=== PATIENT | male | born 1950 | race Caucasian/White ===

== ENCOUNTER 2024-12-04 14:23 | Inpatient (IN) ==
[2024-12-04] MEDS: fentaNYL citrate PF 100 MCG/2 ML VIAL IV STA (15:43)
[2024-12-04 15:56] LABS: Albumin Level 4.1 gm/dl (3.4-5.0); BUN Creatinine Ratio 12.2 (10-20); Basophils # (auto) 0.02 K/uL (0.00-0.20); Basophils % (auto) 0.3 %; Bilirubin Direct 0.7 mg/dl (0-0.2); Bilirubin,Total 1.4 mg/dl (0.2-1.0); Calcium 9.1 mg/dl (8.6-10.3); Creatinine Clr Calc Pharmacy 72.5 ml/min; Eosinophils # (auto) 0.01 K/uL (0.00-0.50); Eosinophils % (auto) 0.1 %; Hematocrit (blood only) 33.5 % (42.0-52.0); Hemoglobin 11.2 g/dl (14.0-18.0); Immature Granulocytes # (auto) 0.03 K/uL (0.01-0.20); Immature Granulocytes % (auto) 0.4 %; Lymphocytes # (auto) 0.42 K/uL (1.20-3.40); Lymphocytes % (auto) 5.9 %; Mean Corpuscular Hemoglobin 30.4 pg (25.0-34.0); Mean Corpuscular Hgb Conc 33.4 g/dL (32.0-36.0); Mean Corpuscular Volume 90.8 fL (80.0-100.0); Mean Platelet Volume 9.7 fL (9.4-12.4); Monocytes # (auto) 0.26 K/uL (0.11-0.59); Monocytes % (auto) 3.7 %; Neutrophils # (auto) 6.35 K/uL (1.40-6.50); Neutrophils % (auto) 89.6 %; Platelet Count 158 K/uL (130-400); Potassium 3.4 mmol/L (3.5-5.1); RDW Coefficient of Variation 12.3 % (11.5-14.5); RDW Standard Deviation 40.7 fL (36.4-46.3); Red Blood Count 3.69 M/uL (4.70-6.10); White Blood Count 7.09 K/ul (4.8-10.8)
[2024-12-04] MEDS: ONDANSETRON INJ 2 MG/ML 2 ML VIAL IV STA (16:19)
[2024-12-04] MEDS: KETOROLAC TROMETHAMINE 15 MG/ML VIAL IV ONE (16:21)
[2024-12-04] MEDS: OPTIRAY 320 100ml IV ONE (16:33)
--- NOTE | 2024-12-04 16:59 | CT Scan Report ---
INDICATION: Abdominal pain. COMPARISON: No relevant priors available. TECHNIQUE: Axial CT images of the abdomen and pelvis were obtained following IV contrast administration. Coronal and sagittal reformations were reviewed. FINDINGS: Visualized lung bases appear unremarkable. Gallbladder distention. Gallstones in the gallbladder. The liver, spleen and adrenal glands appear unremarkable. No hydronephrosis. Left renal peripelvic and renal cortical cysts. A few subcentimeter bilateral renal calculi. Pancreatic calcifications noted. Negative for pancreatic mass or surrounding inflammation. No evidence of bowel obstruction/colitis/appendicitis. No free air. No drainable fluid collection. Small hiatal hernia. Negative for abdominal aortic aneurysm or dissection. Small fat filled umbilical hernia and bilateral inguinal hernias. The urinary bladder appears unremarkable. Phleboliths in the pelvis. No acute osseous abnormality evident. IMPRESSION: 1. Cholelithiasis. Gallbladder distention. 2. Small hiatal hernia. 3. Pancreatic calcifications suggesting degree of chronic pancreatitis. No evidence of acute pancreatitis. 4. Small fat filled umbilical hernia and bilateral inguinal hernias. 5. Bilateral renal cysts and nonobstructing renal calculi. Electronically signed by Chacorta Cast 12-04-2024 4:59 PM
--- NOTE | 2024-12-04 19:22 | Emergency Department Note ---
Impression & Plan Abdominal pain, Abnormal transaminases, Elevated bilirubin ED Provider Note NAME: TONY DEL CID AGE: 74 SEX: M : 1950 ARRIVES VIA: Walk-In INFORMANT: Patient, ED PROVIDER(S): Shea Arevalo MD CHIEF COMPLAINT: Epigastric pain HPI: This is 74-year-old male presenting for epigastric and bilateral upper quadrant pain. Patient notes that he began having pain this morning. It is severe at this time. He is having nauseous with vomiting. He reports he is never had pain like this before. He reports no chest pain or shortness of breath. He reports history of IBS. ROS: See above HPI for pertinent positives & negatives. A total of 10 systems reviewed and were otherwise negative. PAST MEDICAL HISTORY: See Below PAST SURGICAL HISTORY: See Below FAMILY HISTORY: See Below SOCIAL HISTORY: See Below HOME MEDICATIONS: See Below ALLERGIES: See Below VITALS: See Below PHYSICAL EXAMINATION: General: resting comfortably in no acute distress Head: Normocephalic and atraumatic Eyes: Normal inspection, extraocular muscles intact Ear, nose, throat: Normal external exam Neck: Normal range of motion Respiratory: lungs clear to auscultation bilaterally Cardiovascular: Regular rate/rhythm, no murmur GI: Diffusely tender in the upper quadrants and epigastrium Extremities: nontender, moves all extremities Neuro: The patient awake and alert, appropriately conversive, no focal deficits, symmetric faces Skin: Warm, dry, and intact MEDICAL DECISION MAKING: This is a 74-year-old male present for epigastric/bilateral upper quadrant pain. Patient has negative Chong's on my clinical exam currently. He is having diffuse pain in his abdomen however. Consider cholecystitis, pancreatitis, bowel perforation, diverticulitis. -Patient is currently noted to have no leukocytosis. Hemoglobin is 11.2. Does have a transaminitis, 309/161, AST/ALT with a bilirubin of 1.4, direct of 0.7. -CT imaging performed after CAT scan, patient has no current pain -CT ab/pelvis reveals cholelithiasis and gallbladder distention. Small hiatal hernia. Otherwise chronic pancreatitis is evident. -Discussed care with patient he feels completely is baseline with no current pain. -Discussed with Dr. Guillaume, general surgeon recommends ultrasound and evaluation of CBD assessing for choledocholithiasis -Ultrasound performed, pending read. Patient care signed out to oncoming physician, Dr. Hannon. Differential diagnosis: Cholecystitis, choledocholithiasis, diverticulitis, appendicitis, bowel perforation, Independent History obtained from: , daughter Diagnostics interpreted by me: ECG: ECG independently interpreted by me with sinus bradycardia rate of 55,, normal axis, normal WI, normal QRS, normal QTc, no ST segment elevations consistent with STEMI criteria Cardiac Monitoring: An order was placed for continuous cardiac monitoring. The monitor shows a rate of 64 with sinus rhythm. Past Med/Surg History Problem List (Updated 12/05/24 @ 12:01 by Shea Arevalo MD) Elevated bilirubin (Acute) Abnormal transaminases (Acute) Abdominal pain (Acute) Cholelithiasis Hypomagnesemia Hyperglycemia Chronic pancreatitis Hypokalemia Acute calculous cholecystitis Hiatal hernia Dyslipidemia Anemia Chronic diarrhea IBS (irritable bowel syndrome) Medical History (Updated 12/05/24 @ 12:01 by Shea Arevalo MD) Seasonal allergies Hyperlipidemia Hx of renal calculi >20 YRS AGO; ABLE TO PASS W/ OUT INTERVENTION Surgical History Hx of cataract extraction Hx of sigmoidoscopy Hx of colonoscopy Previous back surgery Family History Father Prostate cancer Mother Pancreatitis Hypertension Heart disease Sister Heart disease Denies family history of Ovarian cancer Myocardial infarction Breast cancer Colorectal cancer Social History (Updated 09/01/24 @ 08:17 by EUGENIE Arvizu) Smoking Status: Never smoker Second Hand Exposure: No; Do You Dip or Chew Tobacco: No; Tobacco Cessation Education Requested by Patient: No Hx Alcohol Use: No Hx Substance Use: No Preferred Language: Italian Communication Ability: Effective Visual Impairment: No Limitations Hearing Ability: Normal Machine 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 Required: No Beliefs That Will Affect Care: None marital status: Current Living Situation: Spouse current occupational status: retired Feels Safe at Home: Yes Safety Concerns: Feels Safe At This Time Safety Concerns Comment: Single-level home Childhood Exposure to Second-Hand Smoke: No Diet: regular caffeine: No (decaf tea) during the past year weight has: decreased > 10 lbs Dental Care, Regularly: Yes Physical Activity Frequency: Daily Seatbelt Use: always Sunscreen Use: No Assistive Devices: Glasses Allergies Allergies Allergy/AdvReac Type Severity Reaction Status Date / Time No Known Allergies Allergy Verified 09/01/24 08:14 Home Meds Home Medications Medication Instructions Recorded Confirmed mecobalamin (vitamin B12) 1,000 1,000 mcg PO QAM 03/11/23 12/05/24 mcg chewable tablet potassium chloride 20 mEq 20 meq PO QAM 07/28/23 12/05/24 tablet,extended release Previous Rx's Medication Instructions Recorded atorvastatin 10 mg tablet (Lipitor) 10 mg PO QPM 90 days #90 tabs 11/24/24 Results & Data (ED) Vital Signs Vital Signs - 24 hr 12/04/24 14:25 12/04/24 14:48 12/04/24 14:54 Temperature 36.6 C Temperature Source Oral Pulse Rate 57 L 59 L 62 Pulse Rate [Apical] Pulse Rate from SpO2 Sensor 58 L 60 Pulse Rhythm [Apical] Pulse Strength [Apical] Respiratory Rate 18 15 19 Respiratory Effort / Characteristics Non-Labored Spontaneous Respiratory Depth Normal Respiratory Pattern Regular Blood Pressure 187/76 H 151/81 H Blood Pressure [Left Arm] Blood Pressure Mean 113 104 Blood Pressure Mean [Left Arm] Blood Pressure Position [Left Arm] Pulse Oximetry 99 100 100 Oxygen Delivery Method Room Air Sepsis Recent Fever Within 48 Hours No Sepsis New/Unexplained Change in Mental Status N/A Sepsis Action Taken by Nursing No Action Required 12/04/24 15:01 12/04/24 15:06 12/04/24 15:36 Temperature Temperature Source Pulse Rate 61 64 65 Pulse Rate [Apical] Pulse Rate from SpO2 Sensor 63 64 Pulse Rhythm [Apical] Pulse Strength [Apical] Respiratory Rate 15 21 Respiratory Effort / Characteristics Respiratory Depth Respiratory Pattern Blood Pressure Blood Pressure [Left Arm] Blood Pressure Mean Blood Pressure Mean [Left Arm] Blood Pressure Position [Left Arm] Pulse Oximetry 100 100 Oxygen Delivery Method Sepsis Recent Fever Within 48 Hours Sepsis New/Unexplained Change in Mental Status Sepsis Action Taken by Nursing 12/04/24 15:39 12/04/24 16:00 12/04/24 16:15 Temperature Temperature Source Pulse Rate 59 L 86 Pulse Rate [Apical] 67 Pulse Rate from SpO2 Sensor 60 86 Pulse Rhythm [Apical] Pulse Strength [Apical] Respiratory Rate 20 14 23 Respiratory Effort / Characteristics Non-Labored Spontaneous Respiratory Depth Normal Respiratory Pattern Regular Blood Pressure Blood Pressure [Left Arm] 147/83 H Blood Pressure Mean Blood Pressure Mean [Left Arm] 104 Blood Pressure Position [Left Arm] Pulse Oximetry 98 99 99 Oxygen Delivery Method Room Air Sepsis Recent Fever Within 48 Hours Sepsis New/Unexplained Change in Mental Status Sepsis Action Taken by Nursing 12/04/24 16:25 12/04/24 16:25 12/04/24 16:48 Temperature Temperature Source Pulse Rate Pulse Rate [Apical] Pulse Rate from SpO2 Sensor 70 Pulse Rhythm [Apical] Pulse Strength [Apical] Respiratory Rate Respiratory Effort / Characteristics Respiratory Depth Respiratory Pattern Blood Pressure 135/75 Blood Pressure [Left Arm] 135/75 Blood Pressure Mean 85 Blood Pressure Mean [Left Arm] 95 Blood Pressure Position [Left Arm] Pulse Oximetry 97 Oxygen Delivery Method Sepsis Recent Fever Within 48 Hours Sepsis New/Unexplained Change in Mental Status Sepsis Action Taken by Nursing 12/04/24 16:51 12/04/24 16:51 12/04/24 17:00 Temperature Temperature Source Pulse Rate Pulse Rate [Apical] 69 Pulse Rate from SpO2 Sensor 70 Pulse Rhythm [Apical] Pulse Strength [Apical] Respiratory Rate 18 Respiratory Effort / Characteristics Non-Labored Spontaneous Respiratory Depth Normal Respiratory Pattern Regular Blood Pressure Blood Pressure [Left Arm] 143/70 H 142/68 H Blood Pressure Mean Blood Pressure Mean [Left Arm] 94 92 Blood Pressure Position [Left Arm] Semi-fowlers Pulse Oximetry 98 99 Oxygen Delivery Method Room Air Sepsis Recent Fever Within 48 Hours Sepsis New/Unexplained Change in Mental Status Sepsis Action Taken by Nursing 12/04/24 17:00 12/04/24 17:24 12/04/24 17:33 Temperature Temperature Source Pulse Rate Pulse Rate [Apical] Pulse Rate from SpO2 Sensor 65 66 Pulse Rhythm [Apical] Pulse Strength [Apical] Respiratory Rate Respiratory Effort / Characteristics Respiratory Depth Respiratory Pattern Blood Pressure 142/68 H Blood Pressure [Left Arm] Blood Pressure Mean 103 Blood Pressure Mean [Left Arm] Blood Pressure Position [Left Arm] Pulse Oximetry 98 98 Oxygen Delivery Method Sepsis Recent Fever Within 48 Hours Sepsis New/Unexplained Change in Mental Status Sepsis Action Taken by Nursing 12/04/24 17:51 12/04/24 18:00 12/04/24 18:00 Temperature Temperature Source Pulse Rate Pulse Rate [Apical] Pulse Rate from SpO2 Sensor 70 67 Pulse Rhythm [Apical] Pulse Strength [Apical] Respiratory Rate Respiratory Effort / Characteristics Respiratory Depth Respiratory Pattern Blood Pressure 131/64 Blood Pressure [Left Arm] Blood Pressure Mean 87 Blood Pressure Mean [Left Arm] Blood Pressure Position [Left Arm] Pulse Oximetry 100 99 Oxygen Delivery Method Sepsis Recent Fever Within 48 Hours Sepsis New/Unexplained Change in Mental Status Sepsis Action Taken by Nursing 12/04/24 18:15 12/04/24 18:21 12/04/24 18:30 Temperature Temperature Source Pulse Rate Pulse Rate [Apical] Pulse Rate from SpO2 Sensor 69 75 71 Pulse Rhythm [Apical] Pulse Strength [Apical] Respiratory Rate Respiratory Effort / Characteristics Respiratory Depth Respiratory Pattern Blood Pressure Blood Pressure [Left Arm] Blood Pressure Mean Blood Pressure Mean [Left Arm] Blood Pressure Position [Left Arm] Pulse Oximetry 98 98 98 Oxygen Delivery Method Sepsis Recent Fever Within 48 Hours Sepsis New/Unexplained Change in Mental Status Sepsis Action Taken by Nursing 12/04/24 18:36 12/04/24 19:23 12/04/24 19:23 Temperature Temperature Source Pulse Rate Pulse Rate [Apical] 74 Pulse Rate from SpO2 Sensor 70 Pulse Rhythm [Apical] Pulse Strength [Apical] Respiratory Rate 16 Respiratory Effort / Characteristics Non-Labored Respiratory Depth Normal Respiratory Pattern Regular Blood Pressure 130/70 Blood Pressure [Left Arm] 130/70 Blood Pressure Mean 96 Blood Pressure Mean [Left Arm] 90 Blood Pressure Position [Left Arm] Pulse Oximetry 98 96 Oxygen Delivery Method Room Air Sepsis Recent Fever Within 48 Hours Sepsis New/Unexplained Change in Mental Status Sepsis Action Taken by Nursing 12/04/24 19:27 12/04/24 19:33 12/04/24 19:51 Temperature Temperature Source Pulse Rate 69 74 69 Pulse Rate [Apical] Pulse Rate from SpO2 Sensor 69 73 68 Pulse Rhythm [Apical] Pulse Strength [Apical] Respiratory Rate 16 13 17 Respiratory Effort / Characteristics Respiratory Depth Respiratory Pattern Blood Pressure Blood Pressure [Left Arm] Blood Pressure Mean Blood Pressure Mean [Left Arm] Blood Pressure Position [Left Arm] Pulse Oximetry 99 99 99 Oxygen Delivery Method Sepsis Recent Fever Within 48 Hours Sepsis New/Unexplained Change in Mental Status Sepsis Action Taken by Nursing 12/04/24 19:54 12/04/24 20:00 12/04/24 20:00 Temperature Temperature Source Pulse Rate 69 Pulse Rate [Apical] Pulse Rate from SpO2 Sensor 70 Pulse Rhythm [Apical] Pulse Strength [Apical] Respiratory Rate 26 H Respiratory Effort / Characteristics Respiratory Depth Respiratory Pattern Blood Pressure 122/63 Blood Pressure [Left Arm] 122/63 Blood Pressure Mean 97 Blood Pressure Mean [Left Arm] 82 Blood Pressure Position [Left Arm] Pulse Oximetry 100 Oxygen Delivery Method Sepsis Recent Fever Within 48 Hours Sepsis New/Unexplained Change in Mental Status Sepsis Action Taken by Nursing 12/04/24 20:00 12/04/24 20:03 12/04/24 20:12 Temperature Temperature Source Pulse Rate 71 68 Pulse Rate [Apical] Pulse Rate from SpO2 Sensor 71 68 Pulse Rhythm [Apical] Pulse Strength [Apical] Respiratory Rate 24 20 Respiratory Effort / Characteristics Respiratory Depth Respiratory Pattern Blood Pressure 122/63 Blood Pressure [Left Arm] Blood Pressure Mean 97 Blood Pressure Mean [Left Arm] Blood Pressure Position [Left Arm] Pulse Oximetry 97 100 Oxygen Delivery Method Sepsis Recent Fever Within 48 Hours Sepsis New/Unexplained Change in Mental Status Sepsis Action Taken by Nursing 12/04/24 20:21 12/04/24 20:45 12/04/24 22:00 Temperature Temperature Source Pulse Rate 71 66 68 Pulse Rate [Apical] Pulse Rate from SpO2 Sensor 71 67 Pulse Rhythm [Apical] Pulse Strength [Apical] Respiratory Rate 21 18 Respiratory Effort / Characteristics Respiratory Depth Respiratory Pattern Blood Pressure Blood Pressure [Left Arm] Blood Pressure Mean Blood Pressure Mean [Left Arm] Blood Pressure Position [Left Arm] Pulse Oximetry 99 98 Oxygen Delivery Method Sepsis Recent Fever Within 48 Hours Sepsis New/Unexplained Change in Mental Status Sepsis Action Taken by Nursing 12/04/24 22:00 12/04/24 22:19 12/04/24 23:21 Temperature 37.3 C Temperature Source Oral Pulse Rate Pulse Rate [Apical] 69 66 61 Pulse Rate from SpO2 Sensor Pulse Rhythm [Apical] Regular Pulse Strength [Apical] Normal Respiratory Rate 19 20 18 Respiratory Effort / Characteristics Non-Labored Spontaneous Non-Labored Spontaneous Non-Labored Spontaneous Respiratory Depth Normal Normal Normal Respiratory Pattern Regular Regular Regular Blood Pressure Blood Pressure [Left Arm] 111/58 L 117/64 115/60 Blood Pressure Mean Blood Pressure Mean [Left Arm] 75 81 78 Blood Pressure Position [Left Arm] Semi-fowlers Sitting Pulse Oximetry 96 97 97 Oxygen Delivery Method Room Air Room Air Room Air Sepsis Recent Fever Within 48 Hours Sepsis New/Unexplained Change in Mental Status Sepsis Action Taken by Nursing 12/05/24 01:00 Temperature Temperature Source Pulse Rate Pulse Rate [Apical] 67 Pulse Rate from SpO2 Sensor Pulse Rhythm [Apical] Regular Pulse Strength [Apical] Normal Respiratory Rate 17 Respiratory Effort / Characteristics Non-Labored Spontaneous Respiratory Depth Normal Respiratory Pattern Regular Blood Pressure Blood Pressure [Left Arm] 113/61 Blood Pressure Mean Blood Pressure Mean [Left Arm] 78 Blood Pressure Position [Left Arm] Sitting Pulse Oximetry 98 Oxygen Delivery Method Room Air Sepsis Recent Fever Within 48 Hours Sepsis New/Unexplained Change in Mental Status Sepsis Action Taken by Nursing Laboratory Data 12/04/24 14:47 12/05/24 06:51 Lab Results 12/04/24 Range/Units 14:47 WBC 7.09 (4.8-10.8) K/ul RBC 3.69 L (4.70-6.10) M/uL Hgb 11.2 L (14.0-18.0) g/dl Hct 33.5 L (42.0-52.0) % MCV 90.8 (80.0-100.0) fL MCH 30.4 (25.0-34.0) pg MCHC 33.4 (32.0-36.0) g/dL RDW Std Deviation 40.7 (36.4-46.3) fL RDW Coeff of Suzan 12.3 (11.5-14.5) % Plt Count 158 (130-400) K/uL MPV 9.7 (9.4-12.4) fL Immature Gran % (Auto) 0.4 % Neut % (Auto) 89.6 % Lymph % (Auto) 5.9 % [place] % (Auto) 3.7 % Eos % (Auto) 0.1 % Baso % (Auto) 0.3 % Neut # (Auto) 6.35 (1.40-6.50) K/uL Lymph # (Auto) 0.42 L (1.20-3.40) K/uL [place] # (Auto) 0.26 (0.11-0.59) K/uL Eos # (Auto) 0.01 (0.00-0.50) K/uL Baso # (Auto) 0.02 (0.00-0.20) K/uL Immature Gran # (Auto) 0.03 (0.01-0.20) K/uL Sodium 140 (136-145) mmol/L Potassium 3.4 L (3.5-5.1) mmol/L Chloride 105 (98-107) mmol/L Carbon Dioxide 28 (21-32) mmol/L Anion Gap 7 (3-11) BUN 12 (6-23) mg/dl Creatinine 0.98 (0.6-1.4) mg/dl Est Cr Clr Drug Dosing 72.5 ml/min eGFR 79.92 BUN/Creatinine Ratio 12.2 (10-20) Glucose 203 H (70-99(Fasting)) mg/dl Calcium 9.1 (8.6-10.3) mg/dl Magnesium 1.7 (1.7-2.4) mg/dl Total Bilirubin 1.4 H (0.2-1.0) mg/dl Direct Bilirubin 0.7 H (0-0.2) mg/dl AST 309 H (13-39) U/L ALT 161 H (7-52) U/L Alkaline Phosphatase 194 H (34-104) U/L Total Protein 7.0 (6.0-8.3) gm/dl Albumin 4.1 (3.4-5.0) gm/dl Lipase 56 (11-82) U/L Administered Medications Piperacillin Sod/Tazobactam Sod (Zosyn) 4.5 gm in 100 mls @ 25 mls/hr IV Q8H [facility]; Protocol Stop: 12/15/24 06:59 Last Infusion: 12/05/24 10:08 Dose: Infused Documented By: Admin: 12/05/24 06:06 Dose: 25 mls/hr Documented By: IVÁN Potassium Chloride/Sodium Chloride (Normal Saline W/20 Meq Kcl) 20 meq in 1,000 mls @ 80 mls/hr IV .[id number] [facility] Stop: 12/06/24 02:59 Last Admin: 12/05/24 02:08 Dose: 80 mls/hr Documented By: IVÁN Discontinued Medications Etomidate (Etomidate 2 Mg/Ml 20 Ml Vial) 5 mg IV NOW ONE Stop: 12/04/24 19:31 Last Admin: 12/04/24 20:06 Dose: Not Given Documented By: ASHLEY Etomidate (Etomidate 2 Mg/Ml 20 Ml Vial) 5 mg IV NOW ONE Stop: 12/04/24 19:31 Last Admin: 12/04/24 20:06 Dose: Not Given Documented By: ASHLEY Fentanyl Citrate (Fentanyl Citrate Pf 100 Mcg/2 Ml Vial) 50 mcg IV NOW STA Stop: 12/04/24 15:40 Last Admin: 12/04/24 15:43 Dose: 50 mcg Documented By: ASHLEY Sodium Chloride (Nss) 1,000 mls @ 999 mls/hr IV .[id number] ONE Stop: 12/04/24 20:34 Last Infusion: 12/04/24 20:53 Dose: Infused Documented By: Admin: 12/04/24 19:38 Dose: 999 mls/hr Documented By: MARI Sodium Chloride (Nss) 1,000 mls @ 80 mls/hr IV .[id number] MICHAEL Stop: 12/06/24 01:59 Last Admin: 12/05/24 02:05 Dose: Not Given Documented By: IVÁN Potassium Chloride (K Sarath / Wtr) 10 meq in 100 mls @ 100 mls/hr IV Q1H MICHAEL Stop: 12/05/24 04:29 Last Infusion: 12/05/24 06:06 Dose: Infused Documented By: Admin: 12/05/24 05:03 Dose: 100 mls/hr Documented By: Infusion: 12/05/24 04:58 Dose: Infused Documented By: Jeannette Admin: 12/05/24 03:58 Dose: 100 mls/hr Documented By: Infusion: 12/05/24 03:54 Dose: Infused Documented By: Jeannette Admin: 12/05/24 02:54 Dose: 100 mls/hr Documented By: IVÁN Magnesium Sulfate/Dextrose (Magnesium Sulfate / D5w) 1 gm in 100 mls @ 50 mls/hr IV ONE ONE Stop: 12/05/24 03:24 Last Infusion: 12/05/24 05:17 Dose: Infused Documented By: [facility] Admin: 12/05/24 02:08 Dose: 50 mls/hr Documented By: IVÁN Piperacillin Sod/Tazobactam Sod (Zosyn) 4.5 gm in 100 mls @ 200 mls/hr IV NOW STA; Protocol Stop: 12/05/24 02:29 Last Infusion: 12/05/24 03:43 Dose: Infused Documented By: Jeannette Admin: 12/05/24 02:55 Dose: 200 mls/hr Documented By: IVÁN Ioversol (Optiray 320 100ml) 93 ml IV ONCE ONE Stop: 12/04/24 16:34 Last Admin: 12/04/24 16:33 Dose: 93 ml Documented By: CAT Ketorolac Tromethamine (Ketorolac Tromethamine 15 Mg/Ml Vial) 15 mg IV NOW ONE Stop: 12/04/24 16:16 Last Admin: 12/04/24 16:21 Dose: 15 mg Documented By: ASHLEY Ondansetron HCl (Ondansetron Inj 2 Mg/Ml 2 Ml Vial) 4 mg IV NOW STA Stop: 12/04/24 16:16 Last Admin: 12/04/24 16:19 Dose: 4 mg Documented By: ASHLEY Imaging Data Radiologist's Impression: Abdomen/Pelvis CT 12/04/24 15:36 INDICATION: Abdominal pain. COMPARISON: No relevant priors available. TECHNIQUE: Axial CT images of the abdomen and pelvis were obtained following IV contrast administration. Coronal and sagittal reformations were reviewed. FINDINGS: Visualized lung bases appear unremarkable. Gallbladder distention. Gallstones in the gallbladder. The liver, spleen and adrenal glands appear unremarkable. No hydronephrosis. Left renal peripelvic and renal cortical cysts. A few subcentimeter bilateral renal calculi. Pancreatic calcifications noted. Negative for pancreatic mass or surrounding inflammation. No evidence of bowel obstruction/colitis/appendicitis. No free air. No drainable fluid collection. Small hiatal hernia. Negative for abdominal aortic aneurysm or dissection. Small fat filled umbilical hernia and bilateral inguinal hernias. The urinary bladder appears unremarkable. Phleboliths in the pelvis. No acute osseous abnormality evident. IMPRESSION: 1. Cholelithiasis. Gallbladder distention. 2. Small hiatal hernia. 3. Pancreatic calcifications suggesting degree of chronic pancreatitis. No evidence of acute pancreatitis. 4. Small fat filled umbilical hernia and bilateral inguinal hernias. 5. Bilateral renal cysts and nonobstructing renal calculi. Electronically signed by Chacorta Cast 12-04-2024 4:59 PM Discharge Plan Visit Data Chief Complaint: Abdominal Pain Stated Complaint: SEVERE ABD PAIN ED Provider: Sunday Hannon Discharge Problem: Abdominal pain, Abnormal transaminases, Elevated bilirubin Patient Disposition: Admitted As Inpatient Discharge Instructions Interventions: ED Discharge Assessment Last Done: 12/05/24 01:29
[2024-12-04] MEDS: SODIUM CHLORIDE 0.9% 1,000 ML IV ONE (19:38)
[2024-12-04] MEDS: ETOMIDATE 2 MG/ML 20 ML VIAL IV ONE ×2 (20:06)
--- NOTE | 2024-12-04 20:25 | Ultrasound Report ---
Exam(s): US GALLBLADDER EXAM: US Abdomen Limited, Gallbladder CLINICAL HISTORY: Reason for exam: Transaminitis, [place] vs choledoco. TECHNIQUE: Real-time ultrasound of the right upper quadrant with image documentation. COMPARISON: No relevant prior studies available. FINDINGS: Liver: Liver mildly enlarged at 17 cm. Gallbladder: Distended gallbladder with wall thickening measuring 5 mm in stone visualized near the gallbladder neck. Imaging appearance raises the possibility of cholecystitis, but sonographic Chong sign reported as negative. Common bile duct: No biliary dilatation. Common bile duct 5 mm. Pancreas: Pancreas suboptimally characterized. Right kidney: Unremarkable. Right kidney measures 10.5 cm. No hydronephrosis. Other vasculature: Portal vein patent and normally directed. IMPRESSION: 1. Distended gallbladder with wall thickening measuring 5 mm in stone visualized near the gallbladder neck. Imaging appearance raises the possibility of cholecystitis, but sonographic Chong sign reported as negative. Correlate clinically. 2. No biliary dilatation. Common bile duct 5 mm. Electronically signed by: Dilcia Barfield M.D. 12/04/24 20:25 PM
--- NOTE | 2024-12-04 22:19 | Surgery Consultation ---
Date of Consultation December 04, 2024 Assessment & Plan (1) Acute calculous cholecystitis: Patient is a 74-year-old male who presented to the emergency department this evening for concerns of acute onset of epigastric abdominal pain, nausea and vomiting. Patient was worked up and was found to have elevated LFTs and a T bili of 1.4. Patient is afebrile and WBC wnl. Imaging was concerning for distended gallbladder with wall thickening and gallstones. He was seen and evaluated by the surgical service. The patient is nontoxic appearing, VSS, and has no abdominal pain at this time. Due to the patient having elevated LFTs an MRCP was ordered to r/o possible choledocholithiasis and is negative. Patient's case was discussed with attending surgeon, Dr. Guillaume, and the surgical team recommends the following: -Keep NPO, IV hydration, and will initial pre-op antibiotics. -Will plan to repeat LFTs in the morning to ensure they are downtrending. If LFTs are improving will plan for cholecystectomy. However if they continue to elevate GI will need to be consulted for further evaluation. -Medical management per primary team, surgery will continue to follow. Supervising Physician Co-Signing Physician Notes Patient discussed with DIANNE overnight, labs and imaging reviewed, agree with above. Presented with epigastric pain and left lower quadrant abdominal pain. This occurred after dinner on Wednesday night into Wednesday. Pain had improved after treatment in the emergency department. CT showed gallstones with distended gallbladder. Ultrasound showed cholelithiasis with suspected cholecystitis with a gallbladder wall 5 mm and gallstones. Common bile duct 5 mm, no choledocholithiasis. He was admitted to the medicine service and MRCP showed no evidence of choledocholithiasis. Overnight we recommended keeping the patient n .p.o., and repeating LFTs in the morning. For today's plan, see today's progress note. History of Present Illness Reason for Consultation: acute cholecystitis History of Present Illness Patient is a 74-year-old male who presented to the emergency department for complaints of abdominal pain with nausea and vomiting. Patient states around 2AM he started with severe abdominal pain that originally was in his epigastric region. He states the pain was 10/10 at it's worst. He has never had pain like this before and states at times it was radiating into his back. The patient tells me his pain did somewhat subside later in the morning and he attempt to eat cereal however this just made his pain worse. He did have associated nausea and vomiting and due to his symptoms ongoing he came to the ED for further evaluation. Upon workup LFTs were elevated with a Tbili of 1.4. CT imaging results for possible acute cholecystitis. Patient was seen and evaluated this evening in the ED. Patient is resting in bed, VSS, and is nontoxic appearing. The patient states his abdominal pain along with the nausea and vomiting have completely resolved at this time. Patient tells me that he has never had any previous abdominal surgeries in the past. He denies any CP, SOB, or new onset of fevers or chills with the onset of his symptoms. Allergies Allergy/AdvReac Type Severity Reaction Status Date / Time No Known Allergies Allergy Verified 09/01/24 08:14 Home Medications Medication Instructions Recorded Confirmed Type mecobalamin (vitamin B12) 1,000 1,000 mcg PO QAM 03/11/23 12/05/24 History mcg chewable tablet potassium chloride 20 mEq 20 meq PO QAM 07/28/23 12/05/24 History tablet,extended release atorvastatin 10 mg tablet (Lipitor) 10 mg PO QPM 90 days #90 tabs 11/24/24 12/05/24 Rx Patient History Medical History (Updated 12/05/24 @ 07:47 by SHARA Peng) Seasonal allergies Hyperlipidemia Hx of renal calculi >20 YRS AGO; ABLE TO PASS W/ OUT INTERVENTION Surgical History Hx of cataract extraction Hx of sigmoidoscopy Hx of colonoscopy Previous back surgery Family History Father Prostate cancer Mother Pancreatitis Hypertension Heart disease Sister Heart disease Denies family history of Ovarian cancer Myocardial infarction Breast cancer Colorectal cancer Social History (Updated 09/01/24 @ 08:17 by EUGENIE Arvizu) Smoking Status: Never smoker Second Hand Exposure: No; Do You Dip or Chew Tobacco: No; Tobacco Cessation Education Requested by Patient: No Hx Alcohol Use: No Hx Substance Use: No Preferred Language: Macedonian Communication Ability: Effective Visual Impairment: No Limitations Hearing Ability: Normal Emission Technician Required: No Beliefs That Will Affect Care: None marital status: Current Living Situation: Spouse current occupational status: retired Feels Safe at Home: Yes Safety Concerns: Feels Safe At This Time Safety Concerns Comment: Single-level home Childhood Exposure to Second-Hand Smoke: No Diet: regular caffeine: No (decaf tea) during the past year weight has: decreased > 10 lbs Dental Care, Regularly: Yes Physical Activity Frequency: Daily Seatbelt Use: always Sunscreen Use: No Assistive Devices: Glasses Review of Systems Constitutional: no fever, no chills, no sweats and no weakness Respiratory: no cough, no dyspnea and no wheezing Cardiovascular: no chest pain, no chest pain at rest, no palpitations and no syncope Gastrointestinal: as per Subjective / HPI, + abdominal pain, + nausea and + vomiting Physical Exam Constitutional: WD/WN, vitals as above Respiratory: normal respiratory effort, lungs clear to auscultation Cardiovascular: RRR, no murmur, no edema Gastrointestinal (Abdomen): Inspection/Auscultation: abdomen normal to inspection and normal bowel sounds; abdomen not distended Percussion/Palpation: abdomen soft; abdomen nontender, no guarding, abdomen not rigid and abdomen not firm Skin: no rashes, warm and dry Psychiatric: A+Ox3, euthymic affect Results & Data Vital Signs (Past 12 Hours) Vital Signs Temp Pulse Pulse Resp BP BP Pulse Ox 12/04/24 22:00 68 12/04/24 20:45 66 18 98 12/04/24 20:21 71 21 99 12/04/24 20:12 68 20 100 12/04/24 20:03 71 24 97 12/04/24 20:00 122/63 12/04/24 20:00 122/63 12/04/24 20:00 122/63 12/04/24 19:54 69 26 H 100 12/04/24 19:51 69 17 99 12/04/24 19:33 74 13 99 12/04/24 19:27 69 16 99 12/04/24 19:23 130/70 12/04/24 19:23 74 16 130/70 96 12/04/24 18:36 98 12/04/24 18:30 98 12/04/24 18:21 98 12/04/24 18:15 98 12/04/24 18:00 131/64 12/04/24 18:00 99 12/04/24 17:51 100 01/27/25 17:33 98 12/04/24 17:24 98 12/04/24 17:00 142/68 H 12/04/24 17:00 142/68 H 12/04/24 16:51 99 12/04/24 16:51 69 18 143/70 H 98 12/04/24 16:48 97 12/04/24 16:25 135/75 12/04/24 16:25 135/75 12/04/24 16:15 86 23 99 12/04/24 16:00 59 L 14 99 12/04/24 15:39 67 20 147/83 H 98 12/04/24 15:36 65 21 100 12/04/24 15:06 64 15 100 12/04/24 15:01 61 12/04/24 14:54 62 19 100 12/04/24 14:48 59 L 15 151/81 H 100 12/04/24 14:25 36.6 C 57 L 18 187/76 H 99 O2 Del Method 12/04/24 22:00 12/04/24 20:45 12/04/24 20:21 12/04/24 20:12 12/04/24 20:03 12/04/24 20:00 12/04/24 20:00 12/04/24 20:00 12/04/24 19:54 12/04/24 19:51 12/04/24 19:33 12/04/24 19:27 12/04/24 19:23 12/04/24 19:23 Room Air 12/04/24 18:36 12/04/24 18:30 12/04/24 18:21 12/04/24 18:15 12/04/24 18:00 12/04/24 18:00 12/04/24 17:51 12/04/24 17:33 12/04/24 17:24 12/04/24 17:00 12/04/24 17:00 12/04/24 16:51 12/04/24 16:51 Room Air 12/04/24 16:48 12/04/24 16:25 12/04/24 16:25 12/04/24 16:15 12/04/24 16:00 12/04/24 15:39 Room Air 12/04/24 15:36 12/04/24 15:06 12/04/24 15:01 12/04/24 14:54 12/04/24 14:48 12/04/24 14:25 Room Air Diagnostic Findings CT Abdomen/Pelvis INDICATION: Abdominal pain. COMPARISON: No relevant priors available. TECHNIQUE: Axial CT images of the abdomen and pelvis were obtained following IV contrast administration. Coronal and sagittal reformations were reviewed. FINDINGS: Visualized lung bases appear unremarkable. Gallbladder distention. Gallstones in the gallbladder. The liver, spleen and adrenal glands appear unremarkable. No hydronephrosis. Left renal peripelvic and renal cortical cysts. A few subcentimeter bilateral renal calculi. Pancreatic calcifications noted. Negative for pancreatic mass or surrounding inflammation. No evidence of bowel obstruction/colitis/appendicitis. No free air. No drainable fluid collection. Small hiatal hernia. Negative for abdominal aortic aneurysm or dissection. Small fat filled umbilical hernia and bilateral inguinal hernias. The urinary bladder appears unremarkable. Phleboliths in the pelvis. No acute osseous abnormality evident. IMPRESSION: 1. Cholelithiasis. Gallbladder distention. 2. Small hiatal hernia. 3. Pancreatic calcifications suggesting degree of chronic pancreatitis. No evidence of acute pancreatitis. 4. Small fat filled umbilical hernia and bilateral inguinal hernias. 5. Bilateral renal cysts and nonobstructing renal calculi. EXAM: US Abdomen Limited, Gallbladder CLINICAL HISTORY: Reason for exam: Transaminitis, [place] vs choledoco. TECHNIQUE: Real-time ultrasound of the right upper quadrant with image documentation. COMPARISON: No relevant prior studies available. FINDINGS: Liver: Liver mildly enlarged at 17 cm. Gallbladder: Distended gallbladder with wall thickening measuring 5 mm in stone visualized near the gallbladder neck. Imaging appearance raises the possibility of cholecystitis, but sonographic Chong sign reported as negative. Common bile duct: No biliary dilatation. Common bile duct 5 mm. Pancreas: Pancreas suboptimally characterized. Right kidney: Unremarkable. Right kidney measures 10.5 cm. No hydronephrosis. Other vasculature: Portal vein patent and normally directed. IMPRESSION: 1. Distended gallbladder with wall thickening measuring 5 mm in stone visualized near the gallbladder neck. Imaging appearance raises the possibility of cholecystitis, but sonographic Chong sign reported as negative. Correlate clinically. 2. No biliary dilatation. Common bile duct 5 mm. EXAM: MR Abdomen Without Intravenous Contrast, MRCP Protocol CLINICAL HISTORY: Reason for exam: r/o choledocholithiasis. TECHNIQUE: Multiplanar magnetic resonance images of the abdomen without intravenous contrast using MRCP protocol. COMPARISON: Same day CT, ultrasound FINDINGS: Liver appears unremarkable. Gallbladder is distended. By MRI, the wall does not appear thickened. There are small gallstones. There is no biliary dilatation. Common bile duct measures 5 mm. There is no choledocholithiasis. Pancreas appears atrophic. There are segments of pancreatic duct dilatation suggesting change related to chronic pancreatitis. No acute peripancreatic inflammatory changes are observed. Spleen and adrenal glands are unremarkable. There are simple bilateral renal cysts; no follow-up is indicated. There is no hydronephrosis bilaterally. There is no abdominal aortic aneurysm. Bowel gas pattern appears nonobstructive. A duodenal diverticulum is noted near the ampulla. IMPRESSION: 1. Small gallstones. Gallbladder distention, but no significant gallbladder inflammatory change by MRI. 2. No biliary dilatation or choledocholithiasis. 3. Chronic pancreatitis change. PG Care Time/CCT Total # of Minutes Spent Total Time Spent with Patient: Total time spent is greater than 50% in coordination of care (as documented) at patient's floor/unit and/or counseling patient: [place] [address] Office/Outpt Visit, New Patient Type New Medical Decision Making Straight Forward Diagnoses Acute calculous cholecystitis K80.00
--- NOTE | 2024-12-04 23:48 | Magnetic Resonance Report ---
Exam(s): MRI MRCP EXAM: MR Abdomen Without Intravenous Contrast, MRCP Protocol CLINICAL HISTORY: Reason for exam: r/o choledocholithiasis. TECHNIQUE: Multiplanar magnetic resonance images of the abdomen without intravenous contrast using MRCP protocol. COMPARISON: Same day CT, ultrasound FINDINGS: Liver appears unremarkable. Gallbladder is distended. By MRI, the wall does not appear thickened. There are small gallstones. There is no biliary dilatation. Common bile duct measures 5 mm. There is no choledocholithiasis. Pancreas appears atrophic. There are segments of pancreatic duct dilatation suggesting change related to chronic pancreatitis. No acute peripancreatic inflammatory changes are observed. Spleen and adrenal glands are unremarkable. There are simple bilateral renal cysts; no follow-up is indicated. There is no hydronephrosis bilaterally. There is no abdominal aortic aneurysm. Bowel gas pattern appears nonobstructive. A duodenal diverticulum is noted near the ampulla. IMPRESSION: 1. Small gallstones. Gallbladder distention, but no significant gallbladder inflammatory change by MRI. 2. No biliary dilatation or choledocholithiasis. 3. Chronic pancreatitis change. Electronically signed by: Dilcia Barfield M.D. 12/04/24 23:47 PM
--- NOTE | 2024-12-05 00:47 | History & Physical Report ---
Date of Service December 05, 2024 Assessment & Plan (1) Acute calculous cholecystitis: (2) Hypokalemia: (3) Hypomagnesemia: (4) Chronic pancreatitis: (5) Hyperglycemia: Plan Patient is a 74-year-old male with past medical history of hyperlipidemia and IBS. He presented to the ED due to diffuse abdominal pain that began at 2 AM 12/04. He is being admitted cholecystitis; if LFTs downtrend will plan for cholecystectomy 12/05. #cholecystitis 2:1 AST ALT ratio AST 309, ALT 161, alk phos 194, total bili 1.4, direct bili 0.[address] showed cholelithiasis and gallbladder distention Gallbladder ultrasound showed distended gallbladder with wall thickening measuring 5 mm and stone visualized near gallbladder neck, no biliary dilation MRCP showed small gallstones, gallbladder distention, no significant gallbladder inflammatory change, no choledocholithiasis general surgery eval in ED - LFTs downtrend, plan for cholecystectomy 12/05 - If LFTs uptrend consult GI GI consulted NPO Tylenol prn, Toradol prn, Zofran prn cover with Zosyn #Hypokalemia/hypomagnesemia K+ 3.4 -> 30 meq IV + NSS with 20 meQ gentle resuscitation overnight Mg 1.7 -> 1 G IV K+ goal 4.0/ Mg goal 2.0 resume daily potassium supplement 12/06 after no longer NPO trend BMP and Mg #chronic pancreatitis patient denies alcohol use lipase WNL [address] showed pancreatic calcifications suggesting degree of chronic pancreatitis, no evidence of acute pancreatitis GI consulted #hyperglycemia glucose 203 on admission no history of DM repeat glucose with AM labs - can consider BSG ACHS checks and SSI if remains elevated Chronic stable diagnoses: anemia - hgb 11.2, baseline IBS - no medical management, stable HLD - continue atorvastatin VTE ppx: SCDs; defer chemical ppx with potential surgical management Diet: NPO Dispo: med surg Admission and Anticipated Discharge Date Admission Date: 12/05/24 History of Present Illness Chief Complaint: abd pain Primary Care Provider: Sabina Rosenberg MD Patient is a 74-year-old male with past medical history of hyperlipidemia and IBS. He presented to the ED due to diffuse abdominal pain that began at 2 AM 12/04. He is being admitted cholecystitis; if LFTs downtrend will plan for cholecystectomy 12/05. Patient seen at bedside. He currently has 0/10 abdominal pain after receiving 50 mcg of fentanyl and 15 Mg IV Toradol in ED. He stated that he had 1 episode of vomiting after receiving pain medication but currently denies nausea. He denies recent fevers, chills, chest pain, dyspnea, diarrhea. He does not use nicotine products or drink alcohol. Denies past history of CAD, VTE, DM. He does not use oxygen at baseline. His only medications at home consists of Lipitor, potassium, and B12; however reports he was told he does not need to take lipitor, but still takes a daily. He wishes to be DNR/DNI. He last ate at 0900 12/04. He was seen by surgery team in the ED, agreeable to plan if LFTs drawn trend will have cholecystectomy 12/05. If uptrending, will consult GI; GI consulted on admission. Patient stated he does have known chronic pancreatitis. Allergies Allergy/AdvReac Type Severity Reaction Status Date / Time No Known Allergies Allergy Verified 09/01/24 08:14 Home Medications Medication Instructions Recorded Confirmed Type mecobalamin (vitamin B12) 1,000 1,000 mcg PO QAM 03/11/23 12/05/24 History mcg chewable tablet potassium chloride 20 mEq 20 meq PO QAM 07/28/23 12/05/24 History tablet,extended release atorvastatin 10 mg tablet (Lipitor) 10 mg PO QPM 90 days #90 tabs 11/24/24 12/05/24 Rx Past Med/Surg History Problem List (Updated 12/05/24 @ 01:34 by Dianna Ridley PA-C) Hypomagnesemia Hyperglycemia Chronic pancreatitis Hypokalemia Acute calculous cholecystitis Hiatal hernia Dyslipidemia Anemia Chronic diarrhea IBS (irritable bowel syndrome) Medical History (Updated 12/05/24 @ 01:34 by Dianna Ridley PA-C) Seasonal allergies Hyperlipidemia Hx of renal calculi >20 YRS AGO; ABLE TO PASS W/ OUT INTERVENTION Surgical History Hx of cataract extraction Hx of sigmoidoscopy Hx of colonoscopy Previous back surgery Family History Father Prostate cancer Mother Pancreatitis Hypertension Heart disease Sister Heart disease Denies family history of Ovarian cancer Myocardial infarction Breast cancer Colorectal cancer Social History (Updated 09/01/24 @ 08:17 by EUGENIE Arvizu) Smoking Status: Never smoker Second Hand Exposure: No; Do You Dip or Chew Tobacco: No; Tobacco Cessation Education Requested by Patient: No Hx Alcohol Use: No Hx Substance Use: No Preferred Language: Palauan Communication Ability: Effective Visual Impairment: No Limitations Hearing Ability: Normal Nuclear Weapons Custodian Required: No Beliefs That Will Affect Care: None marital status: Current Living Situation: Spouse current occupational status: retired Feels Safe at Home: Yes Safety Concerns: Feels Safe At This Time Safety Concerns Comment: Single-level home Childhood Exposure to Second-Hand Smoke: No Diet: regular caffeine: No (decaf tea) during the past year weight has: decreased > 10 lbs Dental Care, Regularly: Yes Physical Activity Frequency: Daily Seatbelt Use: always Sunscreen Use: No Assistive Devices: Glasses Review of Systems Review of Systems: see hpi Physical Exam Physical Exam: The patient is awake, alert and oriented 3, well developed and well nourished, normocephalic and atraumatic, in no acute distress. Non-toxic appearing. HEENT- EOMI, mucous membranes moist. Hearing grossly intact. Heart-normal S1 and S2. No murmurs, rubs or gallops. Lungs-clear bilaterally, no respiratory distress, no accessory muscle use. Abdomen-normal bowel sounds and soft. No ascites noted. Non-tender. Extremities- no clubbing, cyanosis, or edema. Rheumatologic-normal range of motion. Psychiatric-normal affect. Results & Data Results & Data Vital Signs (Past 12 Hours) Vital Signs Temp Pulse Pulse Resp BP BP Pulse Ox 12/04/24 23:21 61 18 115/60 97 12/04/24 22:19 37.3 C 66 20 117/64 97 12/04/24 22:00 69 19 111/58 L 96 12/04/24 22:00 68 12/04/24 20:45 66 18 98 12/04/24 20:21 71 21 99 12/04/24 20:12 68 20 100 12/04/24 20:03 71 24 97 12/04/24 20:00 122/63 12/04/24 20:00 122/63 12/04/24 20:00 122/63 12/04/24 19:54 69 26 H 100 12/04/24 19:51 69 17 99 12/04/24 19:33 74 13 99 12/04/24 19:27 69 16 99 12/04/24 19:23 130/70 12/04/24 19:23 74 16 130/70 96 12/04/24 18:36 98 12/04/24 18:30 98 12/04/24 18:21 98 12/04/24 18:15 98 12/04/24 18:00 131/64 12/04/24 18:00 99 12/04/24 17:51 100 12/04/24 17:33 98 12/04/24 17:24 98 12/04/24 17:00 142/68 H 12/04/24 17:00 142/68 H 12/04/24 16:51 99 12/04/24 16:51 69 18 143/70 H 98 12/04/24 16:48 97 12/04/24 16:25 135/75 12/04/24 16:25 135/75 12/04/24 16:15 86 23 99 12/04/24 16:00 59 L 14 99 12/04/24 15:39 67 20 147/83 H 98 12/04/24 15:36 65 21 100 12/04/24 15:06 64 15 100 12/04/24 15:01 61 12/04/24 14:54 62 19 100 12/04/24 14:48 59 L 15 151/81 H 100 12/04/24 14:25 36.6 C 57 L 18 187/76 H 99 O2 Del Method 12/04/24 23:21 Room Air 12/04/24 22:19 Room Air 12/04/24 22:00 Room Air 12/04/24 22:00 12/04/24 20:45 12/04/24 20:21 12/04/24 20:12 12/04/24 20:03 12/04/24 20:00 12/04/24 20:00 12/04/24 20:00 12/04/24 19:54 12/04/24 19:51 12/04/24 19:33 12/04/24 19:27 12/04/24 19:23 12/04/24 19:23 Room Air 12/04/24 18:36 12/04/24 18:30 12/04/24 18:21 12/04/24 18:15 12/04/24 18:00 12/04/24 18:00 12/04/24 17:51 12/04/24 17:33 12/04/24 17:24 12/04/24 17:00 12/04/24 17:00 12/04/24 16:51 12/04/24 16:51 Room Air 12/04/24 16:48 12/04/24 16:25 12/04/24 16:25 12/04/24 16:15 12/04/24 16:00 12/04/24 15:39 Room Air 12/04/24 15:36 12/04/24 15:06 12/04/24 15:01 12/04/24 14:54 12/04/24 14:48 12/04/24 14:25 Room Air Laboratory Results Reviewed CBC and CMP Diagnostic Findings reviewed MRCP, gallbladder ultrasound, AP CT Medications Administered ED: 1L NSS, zosyn, 50 mcg fentanyl, 4mg IV zofran, toradol IV 15 mg ECG Additional Comments: ordered Code Status & VTE Plan Code Status dnr/dni VTE Prophylaxis Plan VTE Prophylaxis will be ordered: Yes Supervising Physician Co-Signing Physician Notes Attending addendum: I have physically seen this patient, have supervised the DIANNE's activities, and agree with the H&P unless as otherwise noted. Assessment and Plan: The patient is a 74-year-old male with past medical history including chronic pancreatitis, hiatal hernia, dyslipidemia, IBS, hypokalemia, chronic diarrhea, and B12 deficiency. He presents to the emergency department with complaint of diffuse abdominal pain that began around 2:00 AM on 12/04. #Cholecystitis- Total bilirubin 1.4, direct bilirubin 0.7, AST 309, ALT 161, ALP 194 CT scan abdomen pelvis shows chronic pancreatitis, cholelithiasis and gallbladder wall distention and small hiatal hernia Gallbladder ultrasound shows distended gallbladder with thickening measuring 5 mm and stone visualized near the gallbladder neck, raising the possibility of cholecystitis. CBD 5 mm in diameter. MRCP small gallstones. Gallbladder distention but no significant inflammatory change by MRI. Chronic pancreatitis change Zosyn 4.5 g IV every 8 hours Status post 1 l normal saline bolus from the ED and will continue at 80 mL/h x 2 additional liters General Surgery aware and plans for surgery in a.m. as long as liver tests have not worsened Consult gastroenterology Electrolyte disturbances- Hypokalemia continue potassium IV and oral supplement as noted potassium 3.4 Magnesium sulfate 1.7, to receive IV supplement as noted Follow laboratory serially Chronic medical issues: Hyperlipidemia-atorvastatin to be resumed after surgery B12 deficiency-supplement to be resumed after surgery PG Care Time/CCT Total # of Minutes Spent Total Time Spent with Patient: Total time spent is greater than 50% in coordination of care (as documented) at patient's floor/unit and/or counseling patient: Coding Level of Care Code 07578 INT INP/OBS CARE MIN Diagnoses Acute calculous cholecystitis K80.00 Hypokalemia E87.6 Hypomagnesemia E83.42 Chronic pancreatitis K86.1 Hyperglycemia R73.9
[2024-12-05 01:08] LABS: Magnesium 1.7 mg/dl (1.7-2.4)
--- NOTE | 2024-12-05 01:52 | Emergency Department Note ---
ED Visit Note Patient's case signed out to me pending ultrasound report. Patient presented for abdominal pain right upper quadrant. Patient after medications in the ER had symptoms resolved. Patient CT scan of abdomen and pelvis showed thickening of gallbladder wall. Patient case was discussed with general surgeon Dr. Guillaume by ER physician Dr. Arevalo. They had recommended an ultrasound be performed for further evaluation. Patient had mild LFT elevation and T. bili of 1.4. On my examination patient's abdomen soft nontender nondistended. Patient's ultrasound showed gallbladder wall thickening with stone near the gallbladder neck, common bile duct normal without obvious stone present. Consultation was had again with general surgery team, Carmen SWAIN with general surgery evaluated the patient at bedside recommends MRCP and if negative okay to admit to medicine service and they will consider taking the gallbladder out tomorrow. MRCP report negative for common bile duct stone. Patient admitted to hospital service further treatment and evaluation. Diagnosis cholelithiasis, abdominal pain Disposition admission .
[2024-12-05] MEDS ORDERED: ONDANSETRON INJ 2 MG/ML 2 ML VIAL IV PRN (01:55)
[2024-12-05] MEDS: SODIUM CHLORIDE 0.9% 1,000 ML IV SCH (02:05)
[2024-12-05] MEDS: NSS + 20MEQ KCL 20 MEQ/1,000 ML BAG IV SCH (02:08)
[2024-12-05] MEDS: MAGNESIUM SULFATE / D5W 1 GM/100 ML BAG IV ONE (02:08)
[2024-12-05] MEDS: POTASSIUM CHLORIDE / WTR 10 MEQ/100 ML PLCT IV SCH (02:54)
[2024-12-05] MEDS: 4.5GM X1 IV STA (02:55)
[2024-12-05] MEDS: PIPERACILLIN/TAZOBACTAM 4.5 GM/100 ML BAG IV SCH (06:06)
--- NOTE | 2024-12-05 06:59 | Hospitalist Progress Note ---
Date of Service December 05, 2024 Assessment & Plan (1) Acute calculous cholecystitis: (2) Hypokalemia: (3) Hypomagnesemia: (4) Chronic pancreatitis: (5) Hyperglycemia: Plan Patient is a 74-year-old male with past medical history of hyperlipidemia and IBS. He presented to the ED due to diffuse abdominal pain that began at 2 AM 12/04. He is being admitted cholecystitis; if LFTs downtrend will plan for cholecystectomy 12/05. #cholecystitis 2:1 AST ALT ratio AST 309, ALT 161, alk phos 194, total bili 1.4, direct bili 0.[address] showed cholelithiasis and gallbladder distention Gallbladder ultrasound showed distended gallbladder with wall thickening measuring 5 mm and stone visualized near gallbladder neck, no biliary dilation MRCP showed small gallstones, gallbladder distention, no significant gallbladder inflammatory change, no choledocholithiasis general surgery eval in ED - LFTs downtrend, plan for cholecystectomy 12/05 - If LFTs uptrend consult GI GI consulted NPO Tylenol prn, Toradol prn, Zofran prn cover with Zosyn #Hypokalemia/hypomagnesemia K+ 3.4 -> 30 meq IV + NSS with 20 meQ gentle resuscitation overnight Mg 1.7 -> 1 G IV K+ goal 4.0/ Mg goal 2.0 resume daily potassium supplement 12/06 after no longer NPO trend BMP and Mg #chronic pancreatitis patient denies alcohol use lipase WNL [address] showed pancreatic calcifications suggesting degree of chronic pancreatitis, no evidence of acute pancreatitis GI consulted #hyperglycemia glucose 203 on admission no history of DM repeat glucose with AM labs - can consider BSG ACHS checks and SSI if remains elevated Chronic stable diagnoses: anemia - hgb 11.2, baseline IBS - no medical management, stable HLD - continue atorvastatin VTE ppx: SCDs; defer chemical ppx with potential surgical management Diet: NPO Dispo: med surg Admission and Anticipated Discharge Date Admission Date: December 05, 2024 Review of Systems 2 Review of Systems: As per HPI. Results & Data Results & Data Vital Signs (Past 12 Hours) Vital Signs Temp Pulse Pulse Resp BP BP BP 12/05/24 01:38 36.6 C 59 L 16 120/68 12/05/24 01:29 12/05/24 01:00 67 17 113/61 12/04/24 23:21 61 18 115/60 12/04/24 22:19 37.3 C 66 20 117/64 12/04/24 22:00 69 19 111/58 L 12/04/24 22:00 68 12/04/24 20:45 66 18 12/04/24 20:21 71 21 12/04/24 20:12 68 20 12/04/24 20:03 71 24 12/04/24 20:00 122/63 12/04/24 20:00 122/63 12/04/24 20:00 122/63 12/04/24 19:54 69 26 H 12/04/24 19:51 69 17 12/04/24 19:33 74 13 12/04/24 19:27 69 16 12/04/24 19:23 130/70 12/04/24 19:23 74 16 130/70 Pulse Ox O2 Del Method 12/05/24 01:38 98 Room Air 12/05/24 01:29 Room Air 12/05/24 01:00 98 Room Air 12/04/24 23:21 97 Room Air 12/04/24 22:19 97 Room Air 12/04/24 22:00 96 Room Air 12/04/24 22:00 12/04/24 20:45 98 12/04/24 20:21 99 12/04/24 20:12 100 12/04/24 20:03 97 12/04/24 20:00 12/04/24 20:00 12/04/24 20:00 12/04/24 19:54 100 12/04/24 19:51 99 12/04/24 19:33 99 12/04/24 19:27 99 12/04/24 19:23 12/04/24 19:23 96 Room Air Laboratory Results 12/04/24 14:47 12/04/24 14:47 Initial LFTs 12/04: AST 309, ALT 161, ALP 194, Tbili 1.4, direct 0.7 Repeat LFTs 12/05: AST , ALT , ALP , Tbili , direct Diagnostic Findings Abdomen/Pelvis CT 12/04/24 15:36 INDICATION: Abdominal pain. COMPARISON: No relevant priors available. TECHNIQUE: Axial CT images of the abdomen and pelvis were obtained following IV contrast administration. Coronal and sagittal reformations were reviewed. FINDINGS: Visualized lung bases appear unremarkable. Gallbladder distention. Gallstones in the gallbladder. The liver, spleen and adrenal glands appear unremarkable. No hydronephrosis. Left renal peripelvic and renal cortical cysts. A few subcentimeter bilateral renal calculi. Pancreatic calcifications noted. Negative for pancreatic mass or surrounding inflammation. No evidence of bowel obstruction/colitis/appendicitis. No free air. No drainable fluid collection. Small hiatal hernia. Negative for abdominal aortic aneurysm or dissection. Small fat filled umbilical hernia and bilateral inguinal hernias. The urinary bladder appears unremarkable. Phleboliths in the pelvis. No acute osseous abnormality evident. IMPRESSION: 1. Cholelithiasis. Gallbladder distention. 2. Small hiatal hernia. 3. Pancreatic calcifications suggesting degree of chronic pancreatitis. No evidence of acute pancreatitis. 4. Small fat filled umbilical hernia and bilateral inguinal hernias. 5. Bilateral renal cysts and nonobstructing renal calculi. Gallbladder Ultrasound 12/04/24 18:01 CLINICAL HISTORY: Reason for exam: Transaminitis, [place] vs choledoco. FINDINGS: Liver: Liver mildly enlarged at 17 cm. Gallbladder: Distended gallbladder with wall thickening measuring 5 mm in stone visualized near the gallbladder neck. Imaging appearance raises the possibility of cholecystitis, but sonographic Chong sign reported as negative. Common bile duct: No biliary dilatation. Common bile duct 5 mm. Pancreas: Pancreas suboptimally characterized. Right kidney: Unremarkable. Right kidney measures 10.5 cm. No hydronephrosis. Other vasculature: Portal vein patent and normally directed. IMPRESSION: 1. Distended gallbladder with wall thickening measuring 5 mm in stone visualized near the gallbladder neck. Imaging appearance raises the possibility of cholecystitis, but sonographic Chong sign reported as negative. Correlate clinically. 2. No biliary dilatation. Common bile duct 5 mm. Cholangiopancreatography MRI 12/04/24 21:52 CLINICAL HISTORY: Reason for exam: r/o choledocholithiasis. COMPARISON: Same day CT, ultrasound FINDINGS: Liver appears unremarkable. Gallbladder is distended. By MRI, the wall does not appear thickened. There are small gallstones. There is no biliary dilatation. Common bile duct measures 5 mm. There is no choledocholithiasis. Pancreas appears atrophic. There are segments of pancreatic duct dilatation suggesting change related to chronic pancreatitis. No acute peripancreatic inflammatory changes are observed. Spleen and adrenal glands are unremarkable. There are simple bilateral renal cysts; no follow-up is indicated. There is no hydronephrosis bilaterally. There is no abdominal aortic aneurysm. Bowel gas pattern appears nonobstructive. A duodenal diverticulum is noted near the ampulla. IMPRESSION: 1. Small gallstones. Gallbladder distention, but no significant gallbladder inflammatory change by MRI. 2. No biliary dilatation or choledocholithiasis. 3. Chronic pancreatitis change.
--- NOTE | 2024-12-05 07:48 | Surgery Progress Note ---
Date of Service December 05, 2024 Assessment & Plan (1) Cholelithiasis: Plan: pt without pain this AM abd soft non TTp LFT pending , if remain stable will add to OR schedule today for Laparoscopic Cholecystectomy with Dr Guillaume Keep NPO IV fluids addendum : LFTs rising , GI consult placed Admission and Anticipated Discharge Date Admission Date: December 05, 2024 Supervising Physician Co-Signing Physician Notes Patient seen and examined, labs and imaging reviewed, agree with above. Admitted with cholelithiasis and suspected cholecystitis with hyperbilirubinemia and transaminitis. MRCP overnight negative. Minimal pain this morning. On exam afebrile stable vitals. Abdomen soft, nontender, nondistended. WBC normal. T. bili doubled to 2.8, AST and ALT elevated. GI consult pending. Would recommend continuing n.p.o. for now, may have clear liquids until midnight after seeing GI. If LFTs continue to uptrend, may need to be transferred for ERCP. If LFTs downtrend, would plan for cholecystectomy either as an outpatient or in the next few days. Subjective pt denies abd pain this am , n/v , f/c Review of Systems Constitutional: no fever and no chills Respiratory: no dyspnea Cardiovascular: no chest pain Gastrointestinal: no abdominal pain, no nausea and no vomiting Physical Exam Constitutional: cooperative and comfortable; no acute distress Respiratory: normal respiratory effort; no respiratory distress Gastrointestinal (Abdomen): Inspection/Auscultation: abdomen not distended Percussion/Palpation: abdomen soft; abdomen nontender Results & Data Vital Signs (Past 12 Hours) Vital Signs Temp Pulse Pulse Resp BP BP BP 12/05/24 07:01 98.4 F 70 18 104/54 L 12/05/24 01:38 97.9 F 59 L 16 120/68 12/05/24 01:29 12/05/24 01:00 67 17 113/61 12/04/24 23:21 61 18 115/60 12/04/24 22:19 99.1 F 66 20 117/64 12/04/24 22:00 69 19 111/58 L 12/04/24 22:00 68 12/04/24 20:45 66 18 12/04/24 20:21 71 21 12/04/24 20:12 68 20 12/04/24 20:03 71 24 12/04/24 20:00 122/63 12/04/24 20:00 122/63 12/04/24 20:00 122/63 12/04/24 19:54 69 26 H 12/04/24 19:51 69 17 Pulse Ox O2 Del Method 12/05/24 07:01 97 Room Air 12/05/24 01:38 98 Room Air 12/05/24 01:29 Room Air 12/05/24 01:00 98 Room Air 12/04/24 23:21 97 Room Air 12/04/24 22:19 97 Room Air 12/04/24 22:00 96 Room Air 12/04/24 22:00 12/04/24 20:45 98 12/04/24 20:21 99 12/04/24 20:12 100 12/04/24 20:03 97 12/04/24 20:00 12/04/24 20:00 12/04/24 20:00 12/04/24 19:54 100 12/04/24 19:51 99 PG Care Time/CCT Total # of Minutes Spent Total Time Spent with Patient: Total time spent is greater than 50% in coordination of care (as documented) at patient's floor/unit and/or counseling patient: Coding Level of Care Code 65584 SUB INP/OBS CARE 12/02MIN Diagnoses Cholelithiasis K80.20
[2024-12-05 07:52] LABS: Alanine Aminotransferase 282 U/L (7-52); Albumin Globulin Ratio 1.3 (0.9-2); Albumin Level 3.2 gm/dl (3.4-5.0); Alkaline Phosphatase 185 U/L (34-104); Anion Gap 4 (3-11); Aspartate Aminotransferase 231 U/L (13-39); BUN Creatinine Ratio 12.5 (10-20); Bilirubin,Total 2.8 mg/dl (0.2-1.0); Blood Urea Nitrogen 15 mg/dl (6-23); Calcium 8.5 mg/dl (8.6-10.3); Carbon Dioxide 28 mmol/L (21-32); Chloride 108 mmol/L (98-107); Creatinine Clr Calc Pharmacy 59.2 ml/min; Globulin 2.4 gm/dl (2.5-4.0); Glucose 94 mg/dl (70-99(Fasting)); Sodium 140 mmol/L (136-145); Total Protein 5.6 gm/dl (6.0-8.3)
--- NOTE | 2024-12-05 11:19 | Gastrointestinal Consultation ---
Date of Consultation December 05, 2024 Assessment & Plan (1) Cholelithiasis: 74 year old male with history of dyslipidemia, IBS and others below admitted through the ED w/ abd pain, nausea/vomiting imaging concerning for chronic pancreatitis and cholecystitis planned for cholecystectomy 12/05 but post-poned due to elevated LFTs w/ Tbili 2.8 MRCP reviewed w/ small gallstones gallbladder distention but no biliary dilatation or choledocholithiasis. As his pain resolved, perhaps he passed a stone. Given normal CBD on ABD US, CT, MR would recommend repeating a set of LFTs tomorrow. If improving, defer timing of CCY to general surgery. If LFTs continue to rise, recommend transfer for ERCP at that time. - Chronic pancreatitis on imaging - Check fecal elastase - Elevated LFTs, gallstones, cholecystitis - No GI contraindication to clear liquids today - Repeat LFTs Wednesday - If improving, CCY per general surgery recommendations - If persistent elevation, transfer for ERCP evaluation I spent a total of 60 minutes on the date of service in review of patient's record, and previously obtained information in person and appropriate medical visit, discussion and education of plan, with patient and/or caregiver, placing orders for tests/referral/procedures as medically necessary and documentation of pertinent clinical information in patient's medical records for their visit today.Thank you for allowing us to participate in the care of this patient. Please call with any acute changes, questions or concerns. Please see addendum below with additional recommendation from my supervising physician. Supervising Physician Co-Signing Physician Notes I personally saw and examined the patient. I have reviewed the chart and agree with the documentation provided by the GLASS CURV[employer] GAUGER including discussion about the assessment, treatment and plan. Briefly, 74 year old male with history of dyslipidemia, IBS and others below admitted through the ED w/ abd pain, nausea/vomiting imaging concerning for chronic pancreatitis and cholecystitis planned for cholecystectomy 12/05 but post-poned due to elevated LFTs w/ Tbili 2.8 MRCP reviewed w/ small gallstones gallbladder distention but no biliary dilatation or choledocholithiasis. The CBD is 5 mm. as his pain resolved, perhaps he passed a stone. Given normal CBD on ABD US, CT, MR would recommend repeating a set of LFTs tomorrow. If improving, defer timing of CCY to general surgery. If LFTs continue to rise, recommend transfer for ERCP at that time. - Chronic pancreatitis on imaging, we will check a pancreatic fecal elastase given the patient's IBS-D diagnosis and chronic diarrhea. In the setting of normal MRCP, CBD 5 mm and no pain (risk of 7% with ERCP associated pancreatitis), would watch to see if this is duct edema from a passed stone. If LFTs do rise we will consider an ERCP. Clear liquid diet for now and supportive care with LFTs in a.m. History of Present Illness Reason for Consultation: Cholecystitis, chronic pancreatitis, history IBS Requesting Physician: Pio Medina MD Attending Physician: Pio Medina MD History of Present Illness 74 year old male with history of dyslipidemia, IBS and others below admitted through the ED w/ abd pain - cholecystitis planned for cholecystectomy 12/05. GI was asked to evaluate for "Cholecystitis, chronic pancreatitis, history IBS." Pt was seen and evaluated, chart reviewed. at bedside. Suggests after eating mac and cheese developed upper abd pain. Never had similar pain. Pain persistent, developed nausea/vomiting and sought ED care. Suggests overnight pain resolved. Pain free this AM. No fever, chills, CP, SOB. Tbili 1.4 --> 2.8 AST 309 --> 231 ALT 161 --> 282 ALKP 194 --> 185 Lipase 56 MRCP 2024: Small gallstones. Gallbladder distention, but no significant gallbladder inflammatory change by MRI.No biliary dilatation or choledocholithiasis. Chronic pancreatitis change. ABD US 2024: Distended gallbladder with wall thickening measuring 5 mm in stone visualized near the gallbladder neck. Imaging appearance raises the possibility of cholecystitis, but sonographic Chong sign reported as negative. Correlate clinically. No biliary dilatation. Common bile duct 5 mm. CTAP 2024: Cholelithiasis. Gallbladder distention. Small hiatal hernia. Pancreatic calcifications suggesting degree of chronic pancreatitis. No evidence of acute pancreatitis. Small fat filled umbilical hernia and bilateral inguinal hernias. Bilateral renal cysts and nonobstructing renal calculi. EGD 03/19/23 medium hiatal hernia, gastritis. Colonoscopy 03/19/23 diverticulosis and nonbleeding internal hemorrhoids. Allergies Allergy/AdvReac Type Severity Reaction Status Date / Time No Known Allergies Allergy Verified 09/01/24 08:14 Home Medications Medication Instructions Recorded Confirmed Type mecobalamin (vitamin B12) 1,000 1,000 mcg PO QAM 03/11/23 12/05/24 History mcg chewable tablet potassium chloride 20 mEq 20 meq PO QAM 07/28/23 12/05/24 History tablet,extended release atorvastatin 10 mg tablet (Lipitor) 10 mg PO QPM 90 days #90 tabs 11/24/24 12/05/24 Rx Patient History Medical History (Updated 12/05/24 @ 07:47 by SHARA Peng) Seasonal allergies Hyperlipidemia Hx of renal calculi >20 YRS AGO; ABLE TO PASS W/ OUT INTERVENTION Surgical History Hx of cataract extraction Hx of sigmoidoscopy Hx of colonoscopy Previous back surgery Family History Father Prostate cancer Mother Pancreatitis Hypertension Heart disease Sister Heart disease Denies family history of Ovarian cancer Myocardial infarction Breast cancer Colorectal cancer Social History (Updated 09/01/24 @ 08:17 by EUGENIE Arvizu) Smoking Status: Never smoker Second Hand Exposure: No; Do You Dip or Chew Tobacco: No; Tobacco Cessation Education Requested by Patient: No Hx Alcohol Use: No Hx Substance Use: No Preferred Language: Yoruba Communication Ability: Effective Visual Impairment: No Limitations Hearing Ability: Normal Payroll Benefits Clerk Required: No Beliefs That Will Affect Care: None marital status: Current Living Situation: Spouse current occupational status: retired Feels Safe at Home: Yes Safety Concerns: Feels Safe At This Time Safety Concerns Comment: Single-level home Childhood Exposure to Second-Hand Smoke: No Diet: regular caffeine: No (decaf tea) during the past year weight has: decreased > 10 lbs Dental Care, Regularly: Yes Physical Activity Frequency: Daily Seatbelt Use: always Sunscreen Use: No Assistive Devices: Glasses Review of Systems Review of Systems: All other findings negative except as noted in HPI. Physical Exam Constitutional: WD/WN, vitals as above Respiratory: normal respiratory effort, lungs clear to auscultation Cardiovascular: Rate/Rhythm: regular rate and regular rhythm Gastrointestinal (Abdomen): normal bowel sounds, soft, nontender, no hepatosplenomegaly Skin: no rashes, warm and dry Results & Data Vital Signs (Past 12 Hours) Vital Signs Temp Pulse Pulse Resp BP BP Pulse Ox 12/05/24 11:06 97.5 F L 64 18 112/65 97 12/05/24 07:01 98.4 F 70 18 104/54 L 97 12/05/24 01:38 97.9 F 59 L 16 120/68 98 12/05/24 01:29 12/05/24 01:00 67 17 113/61 98 12/04/24 23:21 61 18 115/60 97 O2 Del Method 12/05/24 11:06 Room Air 12/05/24 07:01 Room Air 12/05/24 01:38 Room Air 12/05/24 01:29 Room Air 12/05/24 01:00 Room Air 12/04/24 23:21 Room Air Laboratory Results 12/05/24 12/04/24 Range/Units 06:51 14:47 WBC 7.09 (4.8-10.8) K/ul RBC 3.69 L (4.70-6.10) M/uL Hgb 11.2 L (14.0-18.0) g/dl Hct 33.5 L (42.0-52.0) % MCV 90.8 (80.0-100.0) fL MCH 30.4 (25.0-34.0) pg MCHC 33.4 (32.0-36.0) g/dL RDW Std Deviation 40.7 (36.4-46.3) fL RDW Coeff of Suzan 12.3 (11.5-14.5) % Plt Count 158 (130-400) K/uL MPV 9.7 (9.4-12.4) fL Immature Gran % (Auto) 0.4 % Neut % (Auto) 89.6 % Lymph % (Auto) 5.9 % [place] % (Auto) 3.7 % Eos % (Auto) 0.1 % Baso % (Auto) 0.3 % Neut # (Auto) 6.35 (1.40-6.50) K/uL Lymph # (Auto) 0.42 L (1.20-3.40) K/uL [place] # (Auto) 0.26 (0.11-0.59) K/uL Eos # (Auto) 0.01 (0.00-0.50) K/uL Baso # (Auto) 0.02 (0.00-0.20) K/uL Immature Gran # (Auto) 0.03 (0.01-0.20) K/uL Sodium 140 140 (136-145) mmol/L Potassium 4.0 3.4 L (3.5-5.1) mmol/L Chloride 108 H 105 (98-107) mmol/L Carbon Dioxide 28 28 (21-32) mmol/L Anion Gap 4 7 (3-11) BUN 15 12 (6-23) mg/dl Creatinine 1.20 0.98 (0.6-1.4) mg/dl Est Cr Clr Drug Dosing 59.2 72.5 ml/min eGFR 62.67 79.92 BUN/Creatinine Ratio 12.5 12.2 (10-20) Glucose 94 203 H (70-99(Fasting)) mg/dl Calcium 8.5 L 9.1 (8.6-10.3) mg/dl Magnesium 1.7 (1.7-2.4) mg/dl Total Bilirubin 2.8 H D 1.4 H (0.2-1.0) mg/dl Direct Bilirubin TNP 0.7 H (0-0.2) mg/dl AST 231 H 309 H (13-39) U/L ALT 282 H 161 H (7-52) U/L Alkaline Phosphatase 185 H 194 H (34-104) U/L Total Protein 5.6 L 7.0 (6.0-8.3) gm/dl Albumin 3.2 L 4.1 (3.4-5.0) gm/dl Globulin 2.4 L (2.5-4.0) gm/dl Albumin/Globulin Ratio 1.3 (0.9-2) Lipase 56 (11-82) U/L PG Care Time/CCT Total # of Minutes Spent Total Time Spent with Patient: Total time spent is greater than 50% in coordination of care (as documented) at patient's floor/unit and/or counseling patient: Coding Level of Care Code 78265 INT INP/OBS CARE Diagnoses Cholelithiasis K80.20
--- NOTE | 2024-12-05 12:26 | Electrocardiogram Report ---
Test Reason : Blood Pressure : */* mmHG Vent. Rate : 57 BPM Atrial Rate : * BPM P-R Int : * ms QRS Dur : 102 ms QT Int : 444 ms P-R-T Axes : * -31 8 degrees QTcB Int : 432 ms Sinus bradycardia Left axis deviation Abnormal ECG No previous ECGs available Confirmed by Alonso Willson ([id number]) on 12/05/2024 12:26:07 PM Referred By: REFERRED SELF Confirmed By: Alonso Willson
--- NOTE | 2024-12-05 12:48 | Electrocardiogram Report ---
Test Reason : Blood Pressure : */* mmHG Vent. Rate : 55 BPM Atrial Rate : 55 BPM P-R Int : 188 ms QRS Dur : 120 ms QT Int : 440 ms P-R-T Axes : 48 -15 12 degrees QTcB Int : 420 ms Sinus bradycardia with marked sinus arrhythmia Borderline ECG When compared with ECG of 04-Dec-2024 14:38, (unconfirmed) Questionable change in QRS duration Confirmed by Alonso Willson ([id number]) on 12/05/2024 12:47:58 PM Referred By: REFERRED SELF Confirmed By: Alonso Willson
--- NOTE | 2024-12-05 15:29 | Hospitalist Progress Note ---
Date of Service December 05, 2024 Assessment & Plan (1) Acute calculous cholecystitis: Plan: imaging, abnormal LFTs, presenting symptoms all c/w acute cholecystitis MRCP negative for choledocholithiasis however, today his total bilirubin doubled from 1.4 to 2.8 this may or may not suggest a small gallstone has slid into the CBD (despite the recent negative MRCP) due to the rise in his bili gen surg did not take him to the OR today for lap cecilia plan - repeat LFTs in am if total bili continues to rise would need transfer to tertiary care center for consideration of ERCP cont IV zosyn clear liquids today NPO after MN tonight in case he would need ERCP tomorrow cont IV fluids (2) Hypokalemia: Plan: replaced resolved (3) Hypomagnesemia: Plan: mag level wnl (4) Chronic pancreatitis: Plan: findings on imaging concerning for such GI sent stool pancreatic elastase to r/o chronic PI patient does report "IBS" with chronic loose stools (5) Hyperglycemia: Plan: presenting glucose of 203 check a1c in am Admission and Anticipated Discharge Date Admission Date: December 05, 2024 Subjective patient reports no recurrent abd pain or N/V no fevers or chills had loose stool earlier in the day denies any dyspnea Review of Systems Review of Systems: CV - no chest pain pulm - no cough or dyspnea Physical Exam Physical Exam: gen - NAD, looks good eyes - no scleral icterus neck - no JVD mouth - MMM skin - no jaundice heart - RRR, s1 s2, no murmur lungs - CTA b/l abd - soft NT ND BS+ ext - no edema, pulses 2+ b/l Results & Data Results & Data Vital Signs (Past 12 Hours) Vital Signs Temp Pulse Pulse Resp BP Pulse Ox O2 Del Method 12/05/24 14:32 36.5 C 67 17 105/67 100 Room Air 12/05/24 11:06 36.4 C L 64 18 112/65 97 Room Air 12/05/24 07:01 36.9 C 70 18 104/54 L 97 Room Air Laboratory Results Laboratory Results - last 24 hr 12/05/24 12/05/24 06:51 Unknown Sodium 140 Potassium 4.0 Chloride 108 H Carbon Dioxide 28 Anion Gap 4 BUN 15 Creatinine 1.20 Est Cr Clr Drug Dosing 59.2 eGFR 62.67 BUN/Creatinine Ratio 12.5 Glucose 94 Calcium 8.5 L Total Bilirubin 2.8 H D Direct Bilirubin TNP AST 231 H ALT 282 H Alkaline Phosphatase 185 H Total Protein 5.6 L Albumin 3.2 L Globulin 2.4 L Albumin/Globulin Ratio 1.3 Stl Pancreat Elastase 1 Pending Diagnostic Findings Abdomen/Pelvis CT 12/04/24 15:36 INDICATION: Abdominal pain. COMPARISON: No relevant priors available. TECHNIQUE: Axial CT images of the abdomen and pelvis were obtained following IV contrast administration. Coronal and sagittal reformations were reviewed. FINDINGS: Visualized lung bases appear unremarkable. Gallbladder distention. Gallstones in the gallbladder. The liver, spleen and adrenal glands appear unremarkable. No hydronephrosis. Left renal peripelvic and renal cortical cysts. A few subcentimeter bilateral renal calculi. Pancreatic calcifications noted. Negative for pancreatic mass or surrounding inflammation. No evidence of bowel obstruction/colitis/appendicitis. No free air. No drainable fluid collection. Small hiatal hernia. Negative for abdominal aortic aneurysm or dissection. Small fat filled umbilical hernia and bilateral inguinal hernias. The urinary bladder appears unremarkable. Phleboliths in the pelvis. No acute osseous abnormality evident. IMPRESSION: 1. Cholelithiasis. Gallbladder distention. 2. Small hiatal hernia. 3. Pancreatic calcifications suggesting degree of chronic pancreatitis. No evidence of acute pancreatitis. 4. Small fat filled umbilical hernia and bilateral inguinal hernias. 5. Bilateral renal cysts and nonobstructing renal calculi. Electronically signed by Chacorta Cast 12-04-2024 4:59 PM Gallbladder Ultrasound 12/04/24 18:01 Exam(s): US GALLBLADDER EXAM: US Abdomen Limited, Gallbladder CLINICAL HISTORY: Reason for exam: Transaminitis, Cecilia vs choledoco. TECHNIQUE: Real-time ultrasound of the right upper quadrant with image documentation. COMPARISON: No relevant prior studies available. FINDINGS: Liver: Liver mildly enlarged at 17 cm. Gallbladder: Distended gallbladder with wall thickening measuring 5 mm in stone visualized near the gallbladder neck. Imaging appearance raises the possibility of cholecystitis, but sonographic Chong sign reported as negative. Common bile duct: No biliary dilatation. Common bile duct 5 mm. Pancreas: Pancreas suboptimally characterized. Right kidney: Unremarkable. Right kidney measures 10.5 cm. No hydronephrosis. Other vasculature: Portal vein patent and normally directed. IMPRESSION: 1. Distended gallbladder with wall thickening measuring 5 mm in stone visualized near the gallbladder neck. Imaging appearance raises the possibility of cholecystitis, but sonographic Chong sign reported as negative. Correlate clinically. 2. No biliary dilatation. Common bile duct 5 mm. Electronically signed by: Dilcia Barfield M.D. 12/04/24 20:25 PM Cholangiopancreatography MRI 12/04/24 21:52 Exam(s): MRI MRCP EXAM: MR Abdomen Without Intravenous Contrast, MRCP Protocol CLINICAL HISTORY: Reason for exam: r/o choledocholithiasis. TECHNIQUE: Multiplanar magnetic resonance images of the abdomen without intravenous contrast using MRCP protocol. COMPARISON: Same day CT, ultrasound FINDINGS: Liver appears unremarkable. Gallbladder is distended. By MRI, the wall does not appear thickened. There are small gallstones. There is no biliary dilatation. Common bile duct measures 5 mm. There is no choledocholithiasis. Pancreas appears atrophic. There are segments of pancreatic duct dilatation suggesting change related to chronic pancreatitis. No acute peripancreatic inflammatory changes are observed. Spleen and adrenal glands are unremarkable. There are simple bilateral renal cysts; no follow-up is indicated. There is no hydronephrosis bilaterally. There is no abdominal aortic aneurysm. Bowel gas pattern appears nonobstructive. A duodenal diverticulum is noted near the ampulla. IMPRESSION: 1. Small gallstones. Gallbladder distention, but no significant gallbladder inflammatory change by MRI. 2. No biliary dilatation or choledocholithiasis. 3. Chronic pancreatitis change. Electronically signed by: Dilcia Barfield M.D. 12/04/24 23:47 PM PG Care Time/CCT Total # of Minutes Spent Total Time Spent with Patient: Total time spent is greater than 50% in coordination of care (as documented) at patient's floor/unit and/or counseling patient: Coding Level of Care Code 81020 SUB INP/OBS CARE 2/35MIN Diagnoses Acute calculous cholecystitis K80.00 Hypokalemia E87.6 Hypomagnesemia E83.42 Chronic pancreatitis K86.1 Hyperglycemia R73.9
[2024-12-05] MEDS: ATORVASTATIN 10 MG TAB PO SCH (20:46)
[2024-12-06 07:11] LABS: Basophils # (auto) 0.03 K/uL (0.00-0.20); Basophils % (auto) 0.5 %; Eosinophils # (auto) 0.06 K/uL (0.00-0.50); Eosinophils % (auto) 0.9 %; Hematocrit (blood only) 28.3 % (42.0-52.0); Hemoglobin 9.4 g/dl (14.0-18.0); Immature Granulocytes # (auto) 0.02 K/uL (0.01-0.20); Immature Granulocytes % (auto) 0.3 %; Lymphocytes # (auto) 0.67 K/uL (1.20-3.40); Lymphocytes % (auto) 10.5 %; Mean Corpuscular Hemoglobin 30.3 pg (25.0-34.0); Mean Corpuscular Hgb Conc 33.2 g/dL (32.0-36.0); Mean Corpuscular Volume 91.3 fL (80.0-100.0); Mean Platelet Volume 9.8 fL (9.4-12.4); Monocytes # (auto) 0.51 K/uL (0.11-0.59); Neutrophils # (auto) 5.11 K/uL (1.40-6.50); Neutrophils % (auto) 79.8 %; Platelet Count 111 K/uL (130-400); RDW Coefficient of Variation 12.7 % (11.5-14.5); RDW Standard Deviation 42.1 fL (36.4-46.3)
[2024-12-06 07:18] LABS: Estimated Average Glucose 111 mg/dl; Hemoglobin A1C 5.5 % (4.5-5.6)
[2024-12-06 07:33] LABS: Albumin Globulin Ratio 1.1 (0.9-2); Albumin Level 2.9 gm/dl (3.4-5.0); BUN Creatinine Ratio 13.4 (10-20); Bilirubin,Total 1.4 mg/dl (0.2-1.0); Calcium 8.1 mg/dl (8.6-10.3); Creatinine Clr Calc Pharmacy 59.7 ml/min; Globulin 2.6 gm/dl (2.5-4.0); Potassium 3.4 mmol/L (3.5-5.1); Total Protein 5.5 gm/dl (6.0-8.3)
--- NOTE | 2024-12-06 07:58 | Surgery Progress Note ---
Date of Service December 06, 2024 Assessment & Plan (1) Cholelithiasis: Plan: pt denies abd pain , abd soft Non TTP LFTs downtrending T bili 1.4 (2.8) , VSS Will add to OR for a robotic lap cecilia today Keep NPO IV fluids for hydration Admission and Anticipated Discharge Date Admission Date: December 05, 2024 Supervising Physician Co-Signing Physician Notes Patient seen and examined, labs reviewed, agree with above. Admitted with cholelithiasis with transaminitis, MRCP negative for choledocholithiasis. Yesterday his LFTs increased and we continue to watch him in the hospital. Today he denies any pain. He is anxious to have surgery. On exam he is afebrile stable vitals, abdomen soft, nontender. WBC normal, LFTs downtrending. Likely passed a small stone, we will proceed with cholecystectomy today or tomorrow. plan for robotic assisted laparoscopic cholecystectomy with possible cholangiogram risks discussed to include but not limited to bleeding, infection, retained stone, bile leak, open surgery, damage to surrounding structures including bile duct, need for future or more extensive surgery, failure to treat symptoms, and risks of anesthesia. Subjective Denies abd pain, n/v , passing flatus Review of Systems Constitutional: no fever and no chills Respiratory: no dyspnea Cardiovascular: no chest pain Gastrointestinal: no abdominal pain, no nausea and no vomiting Musculoskeletal: no muscle weakness Physical Exam Constitutional: cooperative and comfortable; no acute distress Respiratory: normal respiratory effort and able to speak in complete sentences; no respiratory distress Cardiovascular: Rate/Rhythm: regular rate Gastrointestinal (Abdomen): Inspection/Auscultation: abdomen not distended Percussion/Palpation: abdomen soft; abdomen nontender Results & Data Vital Signs (Past 12 Hours) Vital Signs Temp Pulse Resp BP Pulse Ox O2 Del Method 12/06/24 07:12 98.4 F 64 16 131/72 96 Room Air 12/05/24 20:38 99.0 F 58 L 16 115/61 99 Room Air Results CBC w Diff Results: RBC 3.10 M/uL (4.70-6.10) L 12/06/24 WBC 6.40 K/ul (4.8-10.8) 12/06/24 Hgb 9.4 g/dl (14.0-18.0) L 12/06/24 Hct 28.3 % (42.0-52.0) L 12/06/24 MCV 91.3 fL (80.0-100.0) 12/06/24 MCH 30.3 pg (25.0-34.0) 12/06/24 MCHC 33.2 g/dL (32.0-36.0) 12/06/24 RDW Standard Deviation 42.1 fL (36.4-46.3) 12/06/24 RDW Coefficient of Variation 12.7 % (11.5-14.5) 12/06/24 Plt Count 111 K/uL (130-400) L 12/06/24 MPV 9.8 fL (9.4-12.4) 12/06/24 Neutrophils (%) (Auto) 79.8 % 12/06/24 Lymphocytes (%) (Auto) 10.5 % 12/06/24 Monocytes # (Auto) 0.51 K/uL (0.11-0.59) 12/06/24 Eosinophils # (Auto) 0.06 K/uL (0.00-0.50) 12/06/24 Immature Granulocyte % (Auto) 0.3 % 12/06/24 Neutrophils # (Auto) 5.11 K/uL (1.40-6.50) 12/06/24 Lymphocytes # (Auto) 0.67 K/uL (1.20-3.40) L 12/06/24 Monocytes # (Auto) 0.51 K/uL (0.11-0.59) 12/06/24 Eosinophils # (Auto) 0.06 K/uL (0.00-0.50) 12/06/24 Basophils # (Auto) 0.03 K/uL (0.00-0.20) 12/06/24 Immature Granulocyte # (Auto) 0.02 K/uL (0.01-0.20) 5 Results CMP Results: Sodium 138 mmol/L (136-145) 12/06/24 Potassium 3.4 mmol/L (3.5-5.1) L 12/06/24 Chloride 109 mmol/L (98-107) H 12/06/24 Carbon Dioxide 24 mmol/L (21-32) 12/06/24 Anion Gap 5 (3-11) 12/06/24 BUN 16 mg/dl (6-23) 12/06/24 Creatinine 1.19 mg/dl (0.6-1.4) 12/06/24 eGFR 63.31 12/06/24 Est GFR ( Amer) 97.8 ml/min 02/29/24 Est GFR (Non-Af Amer) 84.4 ml/min 02/29/24 BUN/Creatinine Ratio 13.4 (10-20) 12/06/24 Glucose 88 mg/dl (70-99(Fasting)) 12/06/24 Calcium 8.1 mg/dl (8.6-10.3) L 12/06/24 Total Bilirubin 1.4 mg/dl (0.2-1.0) H 12/06/24 Direct Bilirubin TNP 12/05/24 AST 72 U/L (13-39) H 12/06/24 ALT 164 U/L (7-52) H 12/06/24 Alkaline Phosphatase 175 U/L (34-104) H 12/06/24 Total Protein 5.5 gm/dl (6.0-8.3) L 12/06/24 Albumin 2.9 gm/dl (3.4-5.0) L 12/06/24 Globulin 2.6 gm/dl (2.5-4.0) 12/06/24 Albumin/Globulin Ratio 1.1 (0.9-2) 12/06/24 PG Care Time/CCT Total # of Minutes Spent Total Time Spent with Patient: Total time spent is greater than 50% in coordination of care (as documented) at patient's floor/unit and/or counseling patient: Coding Level of Care Code 89195 SUB INP/OBS CARE 12/02MIN Diagnoses Cholelithiasis K80.20
[2024-12-06] MEDS: POTASSIUM CHLORIDE CRTAB 20 MEQ TABCR PO SCH (08:06)
[2024-12-06] MEDS: POTASSIUM CHLORIDE CRTAB 20 MEQ TABCR PO STA (08:54)
--- NOTE | 2024-12-06 09:17 | Gastroenterology Progress Note ---
Date of Service December 06, 2024 Assessment & Plan (1) Cholelithiasis: Plan: 74 year old male with history of dyslipidemia, IBS and others below admitted through the ED w/ abd pain, nausea/vomiting imaging concerning for chronic pancreatitis and cholecystitis planned for cholecystectomy 12/05 but post-poned due to elevated LFTs w/ Tbili 2.8 MRCP reviewed w/ small gallstones gallbladder distention but no biliary dilatation or choledocholithiasis. As his pain resolved, perhaps he passed a stone. Given normal CBD on ABD US, CT, MR would recommend repeating a set of LFTs tomorrow. His LFTs have improved overnight. He remains pain free and is NPO in anticip ation of surgical decision regarding timing of CCY - Chronic pancreatitis on imaging - Check fecal elastase - Elevated LFTs, gallstones, cholecystitis - Downtrending - Suspected he passed a stone - Appreciate general surgery recommendation regarding timing of CCY Recall GI as needed. Thank you for allowing us to participate in the care of this patient. Please call with any acute changes, questions or concerns. Please see addendum below with additional recommendation from my supervising physician. I spent a total of 30 minutes on the date of service in review of patient's record, and previously obtained information in person and appropriate medical visit, discussion and education of plan, with patient and/or caregiver, placing orders for tests/referral/procedures as medically necessary and documentation of pertinent clinical information in patient's medical records for their visit today. Admission and Anticipated Discharge Date Admission Date: December 05, 2024 Supervising Physician Co-Signing Physician Notes I personally saw and examined the patient. I have reviewed the chart and agree with the documentation provided by the RN [employer] including discussion about the assessment, treatment and plan. LFTs are coming down and he is going for surgery today. Bilirubin has come down to 1.4 and he has no pain. Suspect duct edema from recently passed stone. Will await the fecal elastase and follow that up outpatient given his chronic diarrhea and now chronic pancreatitis on CT. GI will sign off. Please have patient follow-up with [facility] Jr in 2 to 3 months Subjective Pt was seen and evaluated, chart reviewed. Feeling well. No abd pain. No nausea/vomiting. Is NPO for anticipation of a surgical plan today. Tbili 1.4 --> 2.8 --> 1.4 AST 309 --> 231 --> 72 ALT 161 --> 282 --> 164 ALKP 194 --> 185 --> 176 Lipase 56 Review of Systems Review of Systems: All other findings negative except as noted in HPI. Physical Exam Constitutional: WD/WN, vitals as above Respiratory: normal respiratory effort, lungs clear to auscultation Cardiovascular: RRR, no murmur, no edema Gastrointestinal (Abdomen): normal bowel sounds, soft, nontender, no hepatosplenomegaly Skin: no rashes, warm and dry Results & Data Results & Data Vital Signs (Past 12 Hours) Vital Signs Temp Pulse Resp BP Pulse Ox O2 Del Method 12/06/24 07:12 98.4 F 64 16 131/72 96 Room Air Laboratory Results 12/06/24 12/05/24 Range/Units 06:42 Unknown WBC 6.40 (4.8-10.8) K/ul RBC 3.10 L (4.70-6.10) M/uL Hgb 9.4 L (14.0-18.0) g/dl Hct 28.3 L (42.0-52.0) % MCV 91.3 (80.0-100.0) fL MCH 30.3 (25.0-34.0) pg MCHC 33.2 (32.0-36.0) g/dL RDW Std Deviation 42.1 (36.4-46.3) fL RDW Coeff of Suzan 12.7 (11.5-14.5) % Plt Count 111 L (130-400) K/uL MPV 9.8 (9.4-12.4) fL Immature Gran % (Auto) 0.3 % Neut % (Auto) 79.8 % Lymph % (Auto) 10.5 % Monroe % (Auto) 8.0 % Eos % (Auto) 0.9 % Baso % (Auto) 0.5 % Neut # (Auto) 5.11 (1.40-6.50) K/uL Lymph # (Auto) 0.67 L (1.20-3.40) K/uL Monroe # (Auto) 0.51 (0.11-0.59) K/uL Eos # (Auto) 0.06 (0.00-0.50) K/uL Baso # (Auto) 0.03 (0.00-0.20) K/uL Immature Gran # (Auto) 0.02 (0.01-0.20) K/uL Sodium 138 (136-145) mmol/L Potassium 3.4 L (3.5-5.1) mmol/L Chloride 109 H (98-107) mmol/L Carbon Dioxide 24 (21-32) mmol/L Anion Gap 5 (3-11) BUN 16 (6-23) mg/dl Creatinine 1.19 (0.6-1.4) mg/dl Est Cr Clr Drug Dosing 59.7 ml/min eGFR 63.31 BUN/Creatinine Ratio 13.4 (10-20) Glucose 88 (70-99(Fasting)) mg/dl Estimat Average Glucose 111 mg/dl Hemoglobin A1c 5.5 (4.5-5.6) % Calcium 8.1 L (8.6-10.3) mg/dl Total Bilirubin 1.4 H (0.2-1.0) mg/dl AST 72 H (13-39) U/L ALT 164 H (7-52) U/L Alkaline Phosphatase 175 H (34-104) U/L Total Protein 5.5 L (6.0-8.3) gm/dl Albumin 2.9 L (3.4-5.0) gm/dl Globulin 2.6 (2.5-4.0) gm/dl Albumin/Globulin Ratio 1.1 (0.9-2) Stl Pancreat Elastase 1 Pending PG Care Time/CCT Total # of Minutes Spent Total Time Spent with Patient: Total time spent is greater than 50% in coordination of care (as documented) at patient's floor/unit and/or counseling patient: Coding Level of Care Code 39165 SUB INP/OBS CARE 12/02MIN Diagnoses Cholelithiasis K80.20
[2024-12-06] MEDS: D5NSS + 20MEQ KCL 20 MEQ/1,000 ML BAG IV SCH (09:49)
[2024-12-06] MEDS: LACTATED RINGER'S 1,000 ML IV SCH (12:34)
[2024-12-06] MEDS ORDERED: ATROPINE SULFATE 0.1 MG/ML 10ML SYR IV PRN (12:45)
[2024-12-06] MEDS ORDERED: ePHEDrine sulfate 50 MG/ML AMP IV PRN (12:45)
[2024-12-06] MEDS ORDERED: HYDROmorphone INJ 1 MG/ML SYRINGE IV PRN (12:45)
[2024-12-06] MEDS ORDERED: ONDANSETRON INJ 2 MG/ML 2 ML VIAL IV PRN (12:45)
--- NOTE | 2024-12-06 12:56 | Anesthesiology Consultation ---
Date of Service December 06, 2024 Assessment & Plan Chart Review Chart Review: Acceptable Risk for Surgery and Patient NOT seen in Pre Admission Testing Consults Requested none ASA ASA2 Proposed Anesthesia Anesthesia Type: General Risk / Benefits Reviewed With: PT / POA / Parent / Guardian, Accepts Plan and Informed Consent Obtained History Surgery Operation Date: 12/06/24 07:00 Proposed Procedures p Robotic Laparoscopic Cholecystectomy - Richard Guillaume, DO, FACS Height/Weight Height: 6 ft 1 in Weight: 85.4 kg Allergies Allergy/AdvReac Type Severity Reaction Status Date / Time No Known Allergies Allergy Verified 12/06/24 12:21 Medications Home Medications Medication Instructions Recorded Confirmed Last Taken mecobalamin (vitamin B12) 1,000 1,000 mcg PO QAM 03/11/23 12/05/24 08/24/23 mcg chewable tablet potassium chloride 20 mEq 20 meq PO QAM 07/28/23 12/05/24 08/24/23 tablet,extended release atorvastatin 10 mg tablet (Lipitor) 10 mg PO QPM 90 days #90 tabs 11/24/24 12/05/24 Unknown oxycodone 5 mg tablet 5 - 10 mg (1 - 2 x 5 mg) PO 12/06/24 Unknown .[id number] PRN pain, for initial therapy, max 6 tabs per day #15 tabs Active Medications Generic Name Dose Route Start Last Admin Trade Name Freq PRN Reason Stop Dose Admin Atorvastatin Calcium 10 mg 12/05/24 21:00 12/05/24 20:46 Atorvastatin 10 Mg Tab PO 01/04/25 20:59 10 mg QPM MICHAEL Administration Piperacillin Sod/Tazobactam Sod 4.5 gm in 100 mls @ 25 mls/hr 12/05/24 07:00 12/06/24 10:20 Zosyn IV 12/15/24 06:59 Infused Q8H MICHAEL Infusion Protocol Potassium Chloride/Dextrose/Sod Cl 20 meq in 1,000 mls @ 100 mls/hr 12/06/24 09:30 12/06/24 12:10 D5nss + 20meq Kcl IV 12/07/24 09:29 0 mls/hr .Q10H MICHAEL Infusion Lactated Ringer's 1,000 mls @ 15 mls/hr 12/06/24 12:45 12/06/24 12:34 Lr IV 12/07/24 12:44 15 mls/hr .Q24H MICHAEL Administration Potassium Chloride 20 meq 12/06/24 09:00 12/06/24 08:06 Potassium Chloride Crtab 20 Meq Tabcr PO 01/05/25 08:59 20 meq QAM MICHAEL Administration NPO Date Last Intake of Fluids: 12/06/24 Time Last Intake of Fluids: 08:54 Last Intake of Fluids Comment: sip water with pills Date Last Intake of Solids: 12/05/24 Time Last Intake of Solids: 17:00 Past Medical History Medical History Seasonal allergies Hyperlipidemia Hx of renal calculi >20 YRS AGO; ABLE TO PASS W/ OUT INTERVENTION Exercise / Class Metabolic Activity II 4-5 Yardwork/Stairs/Walk up hill Past Family History Family History Father Prostate cancer Mother Pancreatitis Hypertension Heart disease Sister Heart disease Denies family history of Ovarian cancer Myocardial infarction Breast cancer Colorectal cancer Past Surgical History Surgical History Hx of cataract extraction Hx of sigmoidoscopy Hx of colonoscopy Previous back surgery 2017- L4-L5 D/F with [facility] Past Anesthesia History No Hx of Anesthesia Complications and No Family Hx of Anesthesia Complications History of PONV No Hx of PONV and No Hx of Motion Sickness Social History Smoking Status: Never smoker Do You Dip or Chew Tobacco: No Hx Alcohol Use: No Hx Substance Use: No substance use type: does not use Review of Systems ROS Unobtainable: All systems reviewed & are unremarkable except as noted in HPI & below Physical Exam Vital Signs Last Vital Signs Temp 37.0 C 12/06/24 12:21 Pulse 64 12/06/24 12:21 Resp 16 12/06/24 12:21 BP 126/71 12/06/24 12:21 Pulse Ox 98 12/06/24 12:21 O2 Del Method Room Air 12/06/24 12:21 ENMT Mouth: no TMJ abnormality Thyromental Distance: > or= 3.5 Finger Breadths Mallampati Class: II Neck normal visual inspection and trachea midline; neck extension not limited Respiratory normal respiratory effort Auscultation: lungs clear to auscultation bilaterally Cardiovascular Rate/Rhythm: regular rate and regular rhythm Heart Sounds: no murmur Musculoskeletal Spine: normal cervical ROM Extremities: full ROM of extremities Neurologic moves all extremities Psychiatric Orientation: alert and oriented x 3 Testing Laboratory Results 12/06/24 06:42 12/06/24 06:42 Hemoglobin A1c 5.5 % (4.5-5.6) 12/06/24 06:42 Electrocardiogram Date: 12/02/24 Sinus bradycardia with marked sinus arrhythmia Borderline ECG When compared with ECG of 04-Dec-2024 14:38, (unconfirmed) Questionable change in QRS duration Confirmed by Alonso Willson ([id number]) on 12/05/2024 12:47:58 PM
[2024-12-06] MEDS ORDERED: LIDOCAINE 2% 2 ML VIAL/AMP(20MG/ML) INFIL ONE (13:41)
[2024-12-06] MEDS ORDERED: fentaNYL citrate PF 100 MCG/2 ML VIAL ONE (13:41)
[2024-12-06] MEDS ORDERED: ONDANSETRON INJ 2 MG/ML 2 ML VIAL ONE (13:41)
[2024-12-06] MEDS ORDERED: PROPOFOL IV EMULSION 10 MG/ML 20 ML VIAL IV ONE (13:41)
[2024-12-06] MEDS ORDERED: DEXAMETHASONE SOD INJ 4 MG/ML VIAL ONE (13:41)
[2024-12-06] MEDS ORDERED: ROCURONIUM BROMIDE 10 MG/ML 5 ML VIAL IV ONE ×2 (13:43→15:23)
[2024-12-06] MEDS ORDERED: SUGAMMADEX SODIUM 200 MG/2 ML VIAL IV ONE (15:24)
[2024-12-06] MEDS ORDERED: KETOROLAC 30 MG/ML VIAL ONE (15:24)
[2024-12-06] MEDS: BUPIVACAINE 0.5 % 5 MG/1 ML MPF 30ML VIAL ONE (15:30)
--- NOTE | 2024-12-06 15:31 | Operative Report ---
PG Post Operative Report Pre & Post Diagnosis Operation Date: 12/06/24 07:00 Pre-Op Diagnosis: Cholelithiasis Post-Op Diagnosis: Cholelithiasis, gangrenous cholecystitis I identified the patient and participated in the time-out.: Yes Procedure Operation Date: 12/06/24 07:00 Actual Procedures p Robotic Laparoscopic Cholecystectomy - Richard Guillaume DO, JODY Surgeon Richard Guillaume DO, JODY Tv Technician Rosario Rao Estimated Blood Loss 30 Findings Consistent with Post-Op Diagnosis Acute, gangrenous cholecystitis. Critical view of safety obtained, cystic duct and artery doubly clipped and divided. Hemostasis achieved with electrocautery. Specimens Gallbladder Anesthesia Type General Complications none Disposition Accompanied Patient To Recovery: No Disposition: Recovery Room Indications 74-year-old male admitted with cholelithiasis and suspected cholecystitis and question of choledocholithiasis, MRCP negative, on the day of surgery his LFTs were downtrending, plan for robotic cholecystectomy. The risks of the procedure were discussed, all questions were answered, and the patient agreed to proceed with surgery as planned. Description of Procedure The patient was properly identified, consented, and taken to the operating room where he was placed in the supine position. 2.5 mg of indocyanine green was not administered due to a nationwide shortage. General endotracheal anesthesia was induced. SCDs and a safety belt were placed. Preoperative antibiotics were administered. The patient's abdomen was prepped and draped in the standard sterile fashion. A surgical timeout was performed and all parties were in agreement that this was the correct patient and procedure to be performed and we continued as planned. An incision was made just above the umbilicus and to the left of midline. Veress needle was inserted and saline drop test confirmed entry to the abdomen. The abdomen was insufflated with carbon dioxide which the patient tolerated incident. Veress needle was removed and the abdomen is entered using the Optiview technique and a 5 mm camera. The introducer was removed and the abdomen inspected. No damage from initial trocar placement or Veress needle placement was identified. There were no significant abnormalities to the 4 quadrants of the abdomen. 8 mm robotic ports were then placed on the left and right. An additional 5 mm assistant women's soccer coach port was placed in the lateral right subcostal position. The patient was placed in reverse Trendelenburg position and rotated towards the left. The robot was then docked and the camera and robotic instruments were inserted. The gallbladder was acutely inflamed and appeared to have patches of necrosis consistent with gangrenous cholecystitis. The dome of the gallbladder was grasped by the assistant women's soccer coach and retracted towards the left upper quadrant and the infundibulum was retracted toward the right lower quadrant revealing Calot's triangle. Peritoneal attachments were taken down with electrocautery and blunt dissection. The cystic duct and artery were circumferentially dissected. A window of safety was obtained showing the cystic duct entering the gallbladder with no aberrant structures noted. The cystic duct and artery were doubly clipped and divided. The gallbladder was then lifted off the gallbladder fossa with electrocautery. Bleeding from the liver bed was controlled with electrocautery. The right upper quadrant was irrigated and hemostasis was found to be good. The gallbladder was placed in an Endo Catch bag and removed through the one of the port sites. The fascia of the extraction site was closed with an 0 Vicryl suture utilizing a Jere-Maribeth device. The instruments were removed and the robot was undocked. The trochars were removed and the abdomen was allowed to collapse. The skin of all ports was closed with 4-0 Monocryl subcuticular sutures. Dermabond was placed over the wounds. The patient was extubated in the operating room and taken to the PACU where he recovered without apparent incident. All sponge, instrument and needle counts were correct at the conclusion of the procedure. The patient tolerated the procedure well. The physician's assistant women's soccer coach was present and scrubbed for the entirety of the case and was essential in positioning the patient, prepping and draping, retraction and exposure, driving the laparoscope, exchange of the robotic instruments removal of the gallbladder, closure of the incisions, and placement of the dressings. I attest to the content of the Intraoperative Record and any orders documented therein. Any exceptions are noted below.
[2024-12-06] MEDS: fentaNYL citrate PF 100 MCG/2 ML VIAL IV PRN (16:17)
[2024-12-06] MEDS: ACETAMINOPHEN 1,000 MG/100 ML VIAL IV PRN (17:01)
--- NOTE | 2024-12-06 17:10 | Anesthesiology Progress Note ---
Date of Service December 06, 2024 Anesthesia Post Procedure Vital Signs Vital Signs: Temp Pulse Pulse Resp BP BP Pulse Ox 12/06/24 16:46 36.5 C 56 L 18 156/76 H 97 12/06/24 16:40 55 L 18 141/61 H 97 12/06/24 16:30 36.6 C 54 L 20 149/67 H 97 12/06/24 16:20 53 L 18 157/74 H 100 12/06/24 16:10 56 L 20 148/64 H 100 12/06/24 16:00 51 L 16 148/66 H 100 12/06/24 15:50 54 L 20 146/74 H 100 12/06/24 15:47 36.0 C L 57 L 16 157/88 H 100 12/06/24 12:21 37.0 C 64 16 126/71 98 12/06/24 07:12 36.9 C 64 16 131/72 96 12/05/24 20:38 37.2 C 58 L 16 115/61 99 O2 Del Method O2 Flow Rate 12/06/24 16:46 Room Air 12/06/24 16:40 Room Air 12/06/24 16:30 Room Air 12/06/24 16:20 Room Air 12/06/24 16:10 Oxymask 3 12/06/24 16:00 Oxymask 3 12/06/24 15:50 Oxymask 6 12/06/24 15:47 Oxymask 6 12/06/24 12:21 Room Air 12/06/24 07:12 Room Air 12/05/24 20:38 Room Air Pain Intensity Right Abdomen: Pain Intensity: 7 Transfer of Care Handoff Completed per policy Notes Mental Status: alert / awake / arousable and participated in evaluation Patient Amnestic to Procedure: Yes Nausea / Vomiting: adequately controlled Pain: adequately controlled Airway Patency, RR, SpO2: stable & adequate BP & HR: stable & adequate Hydration State: stable & adequate Anesthetic Complications: no major complications apparent and Pt Satisfied with anesthetic care
[2024-12-06] MEDS: KETOROLAC TROMETHAMINE 15 MG/ML VIAL IV PRN (17:32)
--- NOTE | 2024-12-06 19:30 | Hospitalist Progress Note ---
Date of Service December 06, 2024 Assessment & Plan (1) Acute calculous cholecystitis: Plan: imaging, abnormal LFTs, presenting symptoms all c/w acute cholecystitis MRCP negative for choledocholithiasis total bili peaked at 2.8 and has fallen since then taken to the OR today by BIJAN Huizar Gen Surg s/p robotically assisted laparoscopic cholecystectomy gall bladder appeared mildly gangrenous grossly cont IV zosyn cont IV fluids clear liquids repeat labs including LFTs in am will inquire with gen surg about ongoing use of abx after discharge since gall bladder was gangrenous (2) Hypokalemia: Plan: replaced resolved then mildly low again this am - given K containing IV fluids + extra potassium by mouth repeat BMP with mag in am (3) Hypomagnesemia: Plan: recheck mag level in am (4) Chronic pancreatitis: Plan: findings on imaging concerning for such GI sent stool pancreatic elastase to r/o chronic PI patient does report "IBS" with chronic loose stools (5) Hyperglycemia: Plan: presenting glucose of 203 a1c 5.5% today hyperglycemia was 2nd to stress of #1 Plan DVT proph - if he stays beyond tomorrow add chemical DVT proph appreciate gen surg assistance /daughter updated at bedside Admission and Anticipated Discharge Date Admission Date: December 05, 2024 Subjective saw patient post-op from his lap cecilia grossly the gall bladder appeared gangrenous he c/o soreness in the right abdomen but no nausea/emesis no chest pain no dyspnea /daughter at bedside - both updated Review of Systems Review of Systems: gen - no fevers or chills cv - no chest pain pulm - no cough or dyspnea GI - no vomiting Physical Exam Physical Exam: gen - NAD, looks well, laying comfortably in bed eyes - no scleral icterus neck - no JVD mouth - MMM skin - no jaundice heart - RRR, s1 s2, no murmur lungs - CTA b/l abd - mildly distended, BS+ but decreased, incisions clean, no peritoneal signs ext - no edema, pulses 2+ b/l Results & Data Results & Data Vital Signs (Past 12 Hours) Vital Signs Temp Pulse Pulse Resp BP BP Pulse Ox 12/06/24 18:55 36.7 C 52 L 16 106/79 97 12/06/24 17:48 66 16 161/91 H 96 12/06/24 17:23 36.8 C 60 18 161/79 H 97 12/06/24 16:46 36.5 C 56 L 18 156/76 H 97 12/06/24 16:40 55 L 18 141/61 H 97 12/06/24 16:30 36.6 C 54 L 20 149/67 H 97 12/06/24 16:20 53 L 18 157/74 H 100 12/06/24 16:10 56 L 20 148/64 H 100 12/06/24 16:00 51 L 16 148/66 H 100 12/06/24 15:50 54 L 20 146/74 H 100 12/06/24 15:47 36.0 C L 57 L 16 157/88 H 100 12/06/24 12:21 37.0 C 64 16 126/71 98 O2 Del Method O2 Flow Rate 12/06/24 18:55 Room Air 12/06/24 17:48 Room Air 12/06/24 17:23 Room Air 12/06/24 16:46 Room Air 12/06/24 16:40 Room Air 12/06/24 16:30 Room Air 12/06/24 16:20 Room Air 12/06/24 16:10 Oxymask 3 12/06/24 16:00 Oxymask 3 12/06/24 15:50 Oxymask 6 12/06/24 15:47 Oxymask 6 12/06/24 12:21 Room Air Laboratory Results Laboratory Results - last 24 hr 12/06/24 06:42 WBC 6.40 RBC 3.10 L Hgb 9.4 L Hct 28.3 L MCV 91.3 MCH 30.3 MCHC 33.2 RDW Std Deviation 42.1 RDW Coeff of Suzan 12.7 Plt Count 111 L MPV 9.8 Immature Gran % (Auto) 0.3 Neut % (Auto) 79.8 Lymph % (Auto) 10.5 [place] % (Auto) 8.0 Eos % (Auto) 0.9 Baso % (Auto) 0.5 Neut # (Auto) 5.11 Lymph # (Auto) 0.67 L [place] # (Auto) 0.51 Eos # (Auto) 0.06 Baso # (Auto) 0.03 Immature Gran # (Auto) 0.02 Sodium 138 Potassium 3.4 L Chloride 109 H Carbon Dioxide 24 Anion Gap 5 BUN 16 Creatinine 1.19 Est Cr Clr Drug Dosing 59.7 eGFR 63.31 BUN/Creatinine Ratio 13.4 Glucose 88 Estimat Average Glucose 111 Hemoglobin A1c 5.5 Calcium 8.1 L Total Bilirubin 1.4 H AST 72 H ALT 164 H Alkaline Phosphatase 175 H Total Protein 5.5 L Albumin 2.9 L Globulin 2.6 Albumin/Globulin Ratio 1.1 PG Care Time/CCT Total # of Minutes Spent Total Time Spent with Patient: Total time spent is greater than 50% in coordination of care (as documented) at patient's floor/unit and/or counseling patient: Coding Level of Care Code 34068 SUB INP/OBS CARE 235MIN Diagnoses Acute calculous cholecystitis K80.00 Hypokalemia E87.6 Hypomagnesemia E83.42 Chronic pancreatitis K86.1 Hyperglycemia R73.9
[2024-12-06] MEDS ORDERED: oxyCODONE HCL IR 5 MG TAB (IMMEDIATE RELEASE) PO PRN ×2 (19:48)
[2024-12-06] MEDS ORDERED: MoRPHine SULFATE 2 MG/ML CARP IV PRN (19:49)
[2024-12-06] MEDS ORDERED: MoRPHine SULFATE 4 MG/ML 1 ML CARP\\VIAL IV PRN (19:49)
[2024-12-07 07:25] LABS: Basophils # (auto) 0.01 K/uL (0.00-0.20); Basophils % (auto) 0.2 %; Hematocrit (blood only) 29.6 % (42.0-52.0); Hemoglobin 10.1 g/dl (14.0-18.0); Immature Granulocytes # (auto) 0.04 K/uL (0.01-0.20); Immature Granulocytes % (auto) 0.6 %; Lymphocytes # (auto) 0.47 K/uL (1.20-3.40); Lymphocytes % (auto) 7.1 %; Mean Corpuscular Hemoglobin 30.4 pg (25.0-34.0); Mean Corpuscular Hgb Conc 34.1 g/dL (32.0-36.0); Mean Corpuscular Volume 89.2 fL (80.0-100.0); Monocytes # (auto) 0.38 K/uL (0.11-0.59); Monocytes % (auto) 5.8 %; Neutrophils # (auto) 5.68 K/uL (1.40-6.50); Neutrophils % (auto) 86.3 %; Platelet Count 108 K/uL (130-400); RDW Coefficient of Variation 12.3 % (11.5-14.5); Red Blood Count 3.32 M/uL (4.70-6.10); White Blood Count 6.58 K/ul (4.8-10.8)
[2024-12-07 07:49] LABS: Albumin Globulin Ratio 1.1 (0.9-2); BUN Creatinine Ratio 17.6 (10-20); Bilirubin,Total 0.8 mg/dl (0.2-1.0); Calcium 8.3 mg/dl (8.6-10.3); Creatinine Clr Calc Pharmacy 69.6 ml/min; Globulin 2.7 gm/dl (2.5-4.0); Potassium 4.2 mmol/L (3.5-5.1); Total Protein 5.7 gm/dl (6.0-8.3)
[2024-12-07 08:07] VITALS: TEMP 97.9
--- NOTE | 2024-12-07 08:11 | Surgery Progress Note ---
Date of Service December 07, 2024 Assessment & Plan (1) Acute calculous cholecystitis: Plan: POD#1 robotic cholecystectomy WBC 6.5, Hbg 10 (9), LFTs show Tb 0.8 (1.4), AST 61, ALT 138. Vital signs are stable Patient is feeling well, pain controlled, tolerating clears, no n/v Will advance diet this AM If continues to do well this morning he would be stable for discharge from our standpoint for home d/c instructions reviewed, f/u in office with dr. vanegas in 2 weeks Admission and Anticipated Discharge Date Admission Date: December 05, 2024 Supervising Physician Co-Signing Physician Notes Patient seen examined, labs reviewed, agree with above. POD #1 robotic cholecystectomy for acute gangrenous cholecystitis. Feels much better than prior to surgery. Abdomen soft, probably tender to palpation, incisions without infection. LFTs downtrending. Okay to discharge to home from general surgery standpoint. Follow-up in 2 weeks. Wound care instructions, activity restriction, return precautions given Subjective Patient is feeling well. Expected post op pain which is manageable. Tolerating clear liquids without nausea/vomiting. + flatus and voiding. Expresses he would like to go home today if possible. Physical Exam Physical Exam: awake/alert Respiratory: normal respiratory effort Gastrointestinal (Abdomen): Inspection/Auscultation: + abdominal surgical incision (c/d/i with skin glue, no signs of infection); abdomen not distended Percussion/Palpation: + abdomen tender (mild marina incisional discomfort to palpation) and abdomen soft Results & Data Vital Signs (Past 12 Hours) Vital Signs Temp Pulse Resp BP Pulse Ox O2 Del Method 12/07/24 03:09 97.7 F 52 L 16 156/77 H 99 Room Air 12/06/24 23:02 98.4 F 63 16 153/76 H 98 Room Air 12/06/24 20:28 98.6 F 61 16 144/76 H 98 Room Air PG Care Time/CCT Total # of Minutes Spent Total Time Spent with Patient: Total time spent is greater than 50% in coordination of care (as documented) at patient's floor/unit and/or counseling patient: Coding Level of Care Code 33458 Post Operative Follow-Up Diagnoses Acute calculous cholecystitis K80.00
[2024-12-07 11:24] VITALS: BP 156/81; PULSE 52; RESP 16; O2SAT 98
--- NOTE | 2024-12-07 12:52 | Discharge Summary ---
Discharge Summary Date of Service December 07, 2024 Principal Dx & Hospital Course #1 = Principal Diagnosis (1) Acute calculous cholecystitis: imaging, abnormal LFTs, presenting symptoms all c/w acute cholecystitis MRCP negative for choledocholithiasis total bili peaked at 2.8 and has fallen since then taken to the OR today by BIJAN Huizar Gen Surg s/p robotically assisted laparoscopic cholecystectomy gall bladder appeared mildly gangrenous grossly cont IV zosyn cont IV fluids clear liquids repeat labs including LFTs in am will inquire with gen surg about ongoing use of abx after discharge since gall bladder was gangrenous (2) Hypokalemia: replaced resolved then mildly low again this am - given K containing IV fluids + extra potassium by mouth repeat BMP with mag in am (3) Hypomagnesemia: recheck mag level in am (4) Chronic pancreatitis: findings on imaging concerning for such GI sent stool pancreatic elastase to r/o chronic PI patient does report "IBS" with chronic loose stools (5) Hyperglycemia: presenting glucose of 203 a1c 5.5% today hyperglycemia was 2nd to stress of #1 Plan DVT proph - if he stays beyond tomorrow add chemical DVT proph appreciate gen surg assistance /daughter updated at bedside Admission HPI Per Admitting Provider Patient is a 74-year-old male with past medical history of hyperlipidemia and IBS. He presented to the ED due to diffuse abdominal pain that began at 2 AM 12/04. He is being admitted cholecystitis; if LFTs downtrend will plan for cholecystectomy 12/05. Patient seen at bedside. He currently has 0/10 abdominal pain after receiving 50 mcg of fentanyl and 15 Mg IV Toradol in ED. He stated that he had 1 episode of vomiting after receiving pain medication but currently denies nausea. He denies recent fevers, chills, chest pain, dyspnea, diarrhea. He does not use nicotine products or drink alcohol. Denies past history of CAD, VTE, DM. He does not use oxygen at baseline. His only medications at home consists of Lipitor, potassium, and B12; however reports he was told he does not need to take lipitor, but still takes a daily. He wishes to be DNR/DNI. He last ate at 0900 12/04. He was seen by surgery team in the ED, agreeable to plan if LFTs drawn trend will have cholecystectomy 12/05. If uptrending, will consult GI; GI consulted on admission. Patient stated he does have known chronic pancreatitis. Discharge Exam gen - NAD, looks well, laying comfortably in bed eyes - no scleral icterus neck - no JVD mouth - MMM skin - no jaundice heart - RRR, s1 s2, no murmur lungs - CTA b/l abd - mildly distended, BS+ but decreased, incisions clean, no peritoneal signs ext - no edema, pulses 2+ b/l Discharge Plan Discharge Items Patient Disposition: Home - Self-Care Reason For Visit: CHOLECYSTITIS Discharge Diagnosis: 1. robotic cholecystectomy by Dr Guillaume for cholecystitis 2. abnormal liver function tests - improving; due to #1; repeat liver tests in 1 week advised 3. mildly low platelets - likely due to your illness from the cholecystitis - repeat platelet count needed 1 week Activity: Per Instructions section Lifting: No more than 10 pounds Bathing Comment: you can shower , no soaking in pools/bath for 2 weeks Exercise/Sports: Wait until after follow-up appointment Driving/Machine Use: no driving if taking narcotic pain medication Non-emergency contact: Primary Care Provider and Surgeon Call non-emergency contact if: you have any medication questions, your symptoms worsen, your pain is not controlled, your temperature is above 101, your wound has increased redness, your wound has increased drainage and your wound pain has increased Follow-up/Referrals: Richard Guillaume DO, FACS [Physician] - 12/21/24 9:00 am (Hospital follow up scheduled with Dr. Guillaume on December 21 at 9:00) Sabina Rosenberg MD [Primary Care Provider] - 12/14/24 11:00 am (Hospital follow up scheduled December 14 at 11:00 with Divya Feng) Diet: Low Fat Addtl Attending Provider Instructions: Mr Hdz, You were treated for acute cholecystitis. This is when the gall bladder becomes sick/ill/inflamed. Most people who have cholecystitis have gallstones in the gall bladder. Gallstones were indeed present in the gall bladder at the time of your surgery. You underwent robotic cholecystectomy by Dr Guillaume on 12/06/24. Your surgery went well and following surgery you were resumed on clear liquids. You did well with such and prior to going home you were allowed normal food. You tolerated regular food as well. Vital signs and labs remained stable during your stay. You also had a bowel movement before going home. Gastroenterology was also consulted as your liver function tests were elevated. These improved during the stay. Your MRI test did not show any gallstones stuck in your bile duct. If you did have a stone in the duct it likely "passed" on its own. The abnormal liver tests were likely due to the cholecystitis itself. Recommendations - 1. You have surgical glue called dermabond on your surgical site incisions. You may shower with this on. This will tend to come off within a couple of weeks. Do not pick at it. 2. You have been provided oxycodone pain killer medicine for pain. You may ta ke 1 or 2 tablets every 4-6 hours as needed for pain. Please know that oxycodone can -- * cause constipation * impair your senses and/or make you sleepy * do not drive a car while taking oxycodone pain killer medicine * do not drink alcohol while taking oxycodone 3. You may purchase Tylenol and/or Ibuprofen over the counter if needed for additional pain control over the next few days. * tylenol 500mg-1000mg every 6 hours as needed, maximum 3000mg in a 24-hour period * ibuprofen 600mg (200mg tablets x 3) every 6-8 hours as needed, be sure to take with food 4. For constipation you can take 1 or both of the following [id number] medicines - * miralax 1 serving daily * senakot 2 tablets daily 5. Hold your lipitor (atorvastatin) for now. 6. Have your family doctor repeat your CBC blood count and your liver function tests in 1 week. You don't have to fast for these labs. 7. Follow a low-fat diet for now. See handout. Follow-up appointments - see separate section Return to [facility] if - * you have fevers over 101 degrees * you have uncontrolled abdominal pain * you have shortness of breath * you have any concerns about your incisions * you stop passing gas or stool from your rectum * you have nausea and/or vomiting * you develop severe diarrhea - 3 or more liquid stools over a 24-hour period * any other concerns It was our pleasure to care for you! -Dr Medina Pending Studies at Discharge: Yes Studies:: surgical pathology Stand-Alone Forms: My [facility], Smoking Cessation Medications and DC Order Prescriptions: New oxycodone 5 mg tablet 5 - 10 mg PO .[id number] PRN (Reason: pain, for initial therapy, max 6 tabs per day) Qty: 15 0RF Continued mecobalamin (vitamin B12) 1,000 mcg tablet,chewable 1,000 mcg PO QAM potassium chloride 20 mEq tablet extended release 20 meq PO QAM Held atorvastatin [Lipitor] 10 mg tablet 10 mg PO QPM 90 Days Qty: 90 4RF Hold Instructions: hold until your liver tests are repeated and your family doctor tells you it is ok to resume the medicine Discharge Orders: Discharge Order (Routine); Ordered 12/07/24 Ordered By: Pio Hodges/Other Patient Handouts: Having Laparoscopic Cholecystectomy, Cholecystectomy Dc, ED Diet, Low Fat Admission Data Admit Date/Time: 12/05/24 15:26 Attending Provider: Pio Medina Admit Provider: Dianna Ridley Primary Care Provider: Sabina Rosenberg Other Providers: Freddy Dominguez; Larissa Clarke Jr Hospital Stay Data Consultations 12/05/24 01:00 ED Decision to Admit Stat 12/05/24 08:00 Consult Gastroenterology Routine Procedures Performed Operation Date: 12/06/24 07:00 Actual Procedures p Robotic Laparoscopic Cholecystectomy - Richard Guillaume DO, FACS Diagnostic Imagining Performed 12/04/24 15:36 CT abd pelvis IV con only Stat 12/04/24 18:01 US gallbladder Stat 12/04/24 21:52 MR MRCP Stat Pending Results Patient Have Any Pending Studies at Discharge: Yes Discharge Instructions Given to Patient (Per Discharging Provider) Mr Hdz, Raciel were treated for acute cholecystitis. This is when the gall bladder becomes sick/ill/inflamed. Most people who have cholecystitis have gallstones in the gall bladder. Gallstones were indeed present in the gall bladder at the time of your surgery. You underwent robotic cholecystectomy by Dr Guillaume on 12/06/24. Your surgery went well and following surgery you were resumed on clear liquids. You did well with such and prior to going home you were allowed normal food. You tolerated regular food as well. Vital signs and labs remained stable during your stay. You also had a bowel movement before going home. Gastroenterology was also consulted as your liver function tests were elevated. These improved during the stay. Your MRI test did not show any gallstones stuck in your bile duct. If you did have a stone in the duct it likely "passed" on its own. The abnormal liver tests were likely due to the cholecystitis itself. Recommendations - 1. You have surgical glue called dermabond on your surgical site incisions. You may shower with this on. This will tend to come off within a couple of weeks. Do not pick at it. 2. You have been provided oxycodone pain killer medicine for pain. You may take 1 or 2 tablets every 4-6 hours as needed for pain. Please know that oxycodone can -- * cause constipation * impair your senses and/or make you sleepy * do not drive a car while taking oxycodone pain killer medicine * do not drink alcohol while taking oxycodone 3. You may purchase Tylenol and/or Ibuprofen over the counter if needed for additional pain control over the next few days. * tylenol 500mg-1000mg every 6 hours as needed, maximum 3000mg in a 24-hour period * ibuprofen 600mg (200mg tablets x 3) every 6-8 hours as needed, be sure to take with food 4. For constipation you can take 1 or both of the following luud-nof-knorpxf medicines - * miralax 1 serving daily * senakot 2 tablets daily 5. Hold your lipitor (atorvastatin) for now. 6. Have your family doctor repeat your CBC blood count and your liver function tests in 1 week. You don't have to fast for these labs. 7. Follow a low-fat diet for now. See handout. Follow-up appointments - see separate section Return to [facility] if - * you have fevers over 101 degrees * you have uncontrolled abdominal pain * you have shortness of breath * you have any concerns about your incisions * you stop passing gas or stool from your rectum * you have nausea and/or vomiting * you develop severe diarrhea - 3 or more liquid stools over a 24-hour period * any other concerns It was our pleasure to care for you! -Dr Medina Coding Diagnoses Acute calculous cholecystitis K80.00 Hypokalemia E87.6 Hypomagnesemia E83.42 Chronic pancreatitis K86.1 Hyperglycemia R73.9
== END 2024-12-07 13:30 | disposition home or self-care (01) | DRG 418 ==
LOC: 3N 14:23 → ED 14:23 → SUATTDRO 12-05 01:06 → 3N 12-05 01:29